=== PATIENT | female | born 1980 | race Two or more races ===

== ENCOUNTER 2017-11-20 03:55 | Emergency (ER) | payer OTHER ==
--- NOTE | 2017-11-20 04:16 | PDOC ---
History of Present Illness - General Chief Complaint: Pain Stated Complaint: ABD PAIN Time Seen by Provider: 11/20/17 04:12 - History of Present Illness Initial Comments: 11/20/17 04:27 36-year-old female complaining of left lower quadrant pain/ lleft pelvic pain radiating to left flank 2 days today at 1 AM patient started to have severe flank pain radiating to rest left groin pain. Patient reports that she vomited 2 times bilious vomitus. Denies hematuria, frequent urination, dysuria LMP 10/17/2017. patient reports that she took morning after pill 2 weeks ago. Past History - Past Medical History Allergies/Adverse Reactions: Allergies Allergy/AdvReac Type Severity Reaction Status Date / Time No Known Allergies Allergy Verified 11/20/17 04:20 Home Medications: Ambulatory Orders NK [No Known Home Medication] 11/20/17 Thyroid Disease: No - Reproductive History (#): 7 Para: 3 Therapeutic (s) & number: Yes (2) Spontaneous : 1 - Suicide/Smoking/Psychosocial Hx Smoking History: Current every day smoker Number of Cigarettes Smoked Daily: 10 If you are a former smoker, when did you quit?: 3 mths ago 'Breaking Loose' booklet given: 05/29/16 Hx Alcohol Use: No Drug/Substance Use Hx: No Substance Use Type: None Hx Substance Use Treatment: No *Physical Exam - Physical Exam Comments: 11/20/17 06:52 Last Vital Signs Temp Pulse Resp BP Pulse Ox 98.1 F 88 20 122/89 100 11/20/17 04:15 11/20/17 04:15 11/20/17 04:15 11/20/17 04:15 11/20/17 04:15 General Appearance: Yes: Appropriately Dressed Respiratory/Chest: positive: Lungs Clear, Normal Breath Sounds Cardiovascular: positive: Regular Rhythm, Regular Rate Female Pelvic Exam: positive: normal external exam, cervical os closed, adnexal tenderness (left) Gastrointestinal/Abdominal: positive: Normal Bowel Sounds, Soft Musculoskeletal: positive: Normal Inspection, CVA Tenderness (L) Extremity: positive: Normal Capillary Refill, Normal Inspection, Normal Range of Motion Integumentary: positive: Normal Color, Dry, Warm Neurologic: positive: Fully Oriented, Alert, Normal Mood/Affect ED Treatment Course - LABORATORY CBC & Chemistry Diagram: 11/20/17 04:39 11/20/17 05:14 Progress Note - Progress Note Progress Note: A: pelvic pain; flank pain P: cbc cmp beta hcg type and screen TVUS renal us *DC/Admit/Observation/Transfer Diagnosis at time of Disposition: Flank pain, Pelvic pain during - Discharge Dispostion Condition at time of disposition: Fair - Referrals - Patient Instructions - Post Discharge Activity
[2017-11-20] MEDS ORDERED: SODIUM CHLORIDE 1,000 ML IV STA (04:17)
[2017-11-20] MEDS ORDERED: ONDANSETRON 4 MG/2 ML VIAL IVPUSH ONE (04:17)
[2017-11-20 04:20] VITALS: BP 122/89; PULSE 88; TEMP 98.1; BMI 311.1
[2017-11-20] MEDS ORDERED: morphine CARPU-JECT 4 MG/1 ML DISP.SYRIN IVPUSH ONE (04:25)
--- NOTE | 2017-11-20 04:45 | PDOC ---
*Physical Exam - Vital Signs Last Vital Signs Temp Pulse Resp BP Pulse Ox 98.1 F 88 20 122/89 100 11/20/17 04:15 11/20/17 04:15 11/20/17 04:15 11/20/17 04:15 11/20/17 04:15 Medical Decision Making - Medical Decision Making 11/20/17 04:45 Pt seen by the Advanced Practice Provider under my direct supervision Ancillary studies reviewed I agree with plan as outlined by the Advanced Practice Provider DENNIS Womack *DC/Admit/Observation/Transfer - Discharge Dispostion Condition at time of disposition: Fair - Referrals - Patient Instructions - Post Discharge Activity
[2017-11-20] MEDS ORDERED: morphine SULFATE 4 MG/ML VIAL ONE (04:46)
[2017-11-20] MEDS ORDERED: ONDANSETRON 4 MG/2 ML VIAL ONE (04:47)
[2017-11-20 04:50] LABS: BASO % 0.6 % (0-2.0); EOS % 0.6 % (0-4.5); HEMATOCRIT 34.5 % (32.4-45.2); HEMOGLOBIN 11.2 GM/dL (10.7-15.3); LYMPH % 21.1 % (8-40); MCHC 32.6 g/dl (32.0-36.0); MEAN CELL VOLUME 79.8 fl (80-96); MEAN PLT VOLUME 8.4 fl (7.5-11.1); NEUT % 69.7 % (42.8-82.8); PLATELET COUNT 299 K/MM3 (134-434); RBC 4.32 M/mm3 (3.60-5.2); RDW 14.4 % (11.6-15.6)
[2017-11-20 04:56] LABS: URINE APPEARANCE SLCLOUDY; URINE BILIRUBIN NEGATIVE (<2.0 mg/dL); URINE BLOOD NEGATIVE (NEGATIVE); URINE COLOR LTYELLOW; URINE GLUCOSE (UA) NEGATIVE (NEGATIVE); URINE KETONE NEGATIVE (NEGATIVE); URINE LEUK ESTERASE NEGATIVE (NEGATIVE); URINE NITRITE POSITIVE (NEGATIVE); URINE PROTEIN NEGATIVE (NEGATIVE)
[2017-11-20 05:12] LABS: EPI CELLS FEW /HPF (FEW); URINE BACTERIA MODERATE /hpf (NONE SEEN); URINE MUCUS RARE
[2017-11-20 05:43] LABS: ALBUMIN 3.4 g/dl (3.4-5.0); ALK PHOS 68 U/L (45-117); ANION GAP 6 (8-16); BILIRUBIN,TOTAL 0.3 mg/dL (0.2-1.0); BLOOD UREA NITROGEN 17 mg/dL (7-18); CALCIUM 8.5 mg/dL (8.5-10.1); CHLORIDE 106 mmol/L (98-107); CO2 27 mmol/L (21-32); CREATININE 0.7 mg/dL (0.55-1.02); GLUCOSE,RANDOM 83 mg/dL (74-106); POTASSIUM 3.9 mmol/L (3.5-5.1); SGOT/AST 19 U/L (15-37); SGPT/ALT 24 U/L (12-78); SODIUM 139 mmol/L (136-145); TOT PROT 6.6 g/dl (6.4-8.2)
[2017-11-20 06:15] LABS: INR 1.01 (0.82-1.09); PROTHROMBIN TIME (PATIENT) 11.4 SEC (9.7-13.0)
[2017-11-20 06:17] LABS: ACTIVATED PTT 29.7 SECONDS (26.9-34.4)
[2017-11-20] MEDS ORDERED: ACETAMINOPHEN 325 MG TABLET (FP) ONE (07:45)
[2017-11-20] MEDS ORDERED: ACETAMINOPHEN 325 MG TABLET (FP) PO ONE (07:45)
--- NOTE | 2017-11-20 08:15 | PDOC ---
*Physical Exam - Vital Signs Last Vital Signs Temp Pulse Resp BP Pulse Ox 98.1 F 88 20 122/89 100 11/20/17 04:15 11/20/17 04:15 11/20/17 04:15 11/20/17 04:15 11/20/17 04:15 - Physical Exam General Appearance: Yes: Appropriately Dressed. No: Apparent Distress HEENT: positive: Normal Voice Respiratory/Chest: negative: Respiratory Distress Gastrointestinal/Abdominal: positive: Normal Bowel Sounds, Tender (to R pelvis) , Soft. negative: Distended, Guarding, Rebound Musculoskeletal: negative: CVA Tenderness Integumentary: positive: Dry, Warm Neurologic: positive: Fully Oriented, Alert, Normal Mood/Affect ED Treatment Course - LABORATORY CBC & Chemistry Diagram: 11/20/17 04:39 11/20/17 05:14 - ADDITIONAL ORDERS Additional order review: Laboratory Results 11/20/17 11/20/17 11/20/17 05:50 05:50 05:50 PT with INR 11.40 INR 1.01 PTT (Actin FS) 29.7 Sodium Potassium Chloride Carbon Dioxide Anion Gap BUN Creatinine Creat Clearance w eGFR Random Glucose Calcium Total Bilirubin AST ALT Alkaline Phosphatase Total Protein Albumin Beta HCG, Quant 1282.8 Serum , Qual Urine Color Urine Appearance Urine pH Ur Specific [place] Urine Protein Urine Glucose (UA) Urine Ketones Urine Blood Urine Nitrite Urine Bilirubin Urine Urobilinogen Ur Leukocyte Esterase Urine WBC (Auto) Urine RBC (Auto) Ur Epithelial Cells Urine Bacteria Urine Mucus Blood Type O POSITIVE Antibody Screen Negative 11/20/17 11/20/17 11/20/17 05:14 05:14 04:39 PT with INR INR PTT (Actin FS) Sodium 139 Cancelled Potassium 3.9 Cancelled Chloride 106 Cancelled Carbon Dioxide 27 Cancelled Anion Gap 6 L Cancelled BUN 17 Cancelled Creatinine 0.7 Cancelled Creat Clearance w eGFR > 60 Cancelled Random Glucose 83 Cancelled Calcium 8.5 Cancelled Total Bilirubin 0.3 D Cancelled AST 19 Cancelled ALT 24 Cancelled Alkaline Phosphatase 68 Cancelled Total Protein 6.6 Cancelled Albumin 3.4 Cancelled Beta HCG, Quant Serum , Qual Positive Urine Color Urine Appearance Urine pH Ur Specific [place] Urine Protein Urine Glucose (UA) Urine Ketones Urine Blood Urine Nitrite Urine Bilirubin Urine Urobilinogen Ur Leukocyte Esterase Urine WBC (Auto) Urine RBC (Auto) Ur Epithelial Cells Urine Bacteria Urine Mucus Blood Type Antibody Screen 11/20/17 11/20/17 04:39 04:39 PT with INR INR PTT (Actin FS) Sodium Potassium Chloride Carbon Dioxide Anion Gap BUN Creatinine Creat Clearance w eGFR Random Glucose Calcium Total Bilirubin AST ALT Alkaline Phosphatase Total Protein Albumin Beta HCG, Quant Serum , Qual Cancelled Urine Color Ltyellow Urine Appearance Slcloudy Urine pH 7.0 Ur Specific [place] 1.024 Urine Protein Negative Urine Glucose (UA) Negative Urine Ketones Negative Urine Blood Negative Urine Nitrite Positive Urine Bilirubin Negative Urine Urobilinogen 2.0 H Ur Leukocyte Esterase Negative Urine WBC (Auto) 4 Urine RBC (Auto) 2 Ur Epithelial Cells Few Urine Bacteria Moderate Urine Mucus Rare Blood Type Antibody Screen 11/20/17 04:39 RBC 4.32 MCV 79.8 L MCHC 32.6 RDW 14.4 MPV 8.4 Neutrophils % 69.7 Lymphocytes % 21.1 D Monocytes % 8.0 Eosinophils % 0.6 Basophils % 0.6 - Medications Given in the ED: ED Medications Discontinued Medications Generic Name Dose Route Start Last Admin Trade Name Rayq PRN Reason Stop Dose Admin Sodium Chloride 1,000 mls @ 1,000 mls/hr 11/20/17 04:17 11/20/17 04:35 Normal Saline - IV 11/20/17 05:16 1,000 mls/hr ASDIR STA Administration Morphine Sulfate 4 mg 11/20/17 04:25 11/20/17 04:35 Morphine Injection - IVPUSH 11/20/17 04:26 4 mg ONCE ONE Administration Ondansetron HCl 4 mg 11/20/17 04:17 11/20/17 04:35 Zofran Injection IVPUSH 11/20/17 04:18 4 mg ONCE ONE Administration Medical Decision Making - Medical Decision Making 11/20/17 07:47 Pt signed out to me at 7 AM 36-year-old F w/ multiple pregnancies w/ 3 live births, multiple spontaneous miscarriages and elective ABs (does not quite remember how may pregnancies she has had) here with right pelvic pain. Found to have + test, which patient was not aware off. ~5 weeks weeks by dates. No vaginal bleeding or dysuria, but has + nitrites on UA. Beta 1200. Ultrasound pending 11/20/17 11:06 Ultrasound with possible early , no pole or yolk sac seen. Patient will need follow-up in 48 hours to rule out ectopic. Patient aware and will return on Thursday for re-eval. No abdominal pain or bleeding at this time. Dc with Macrobid for uti *DC/Admit/Observation/Transfer Diagnosis at time of Disposition: Flank pain, Pelvic pain during - Discharge Dispostion Disposition: HOME Condition at time of disposition: Improved - Prescriptions Prescriptions: Nitrofurantoin Monohyd/M-Cryst [Macrobid -] 100 mg PO BID #14 capsule - Referrals - Patient Instructions Printed Discharge Instructions: DI for Abdominal Pain -- Early Additional Instructions: Your ultrasound showed that you may have an early , but it is important that you follow-up in 48 hours for repeat assessment with either a repeat hormone level and/or repeat ultrasound to amke sure that you do not have an ectopic . If you are not able to see your OB over the weekend, return to ER. Continue to take Tylenol as needed for pain. You were started on antibiotics for UTI, take medication as directed - Post Discharge Activity
== END 2017-11-20 11:11 | disposition home or self-care (01) ==
LOC: JER 03:55
PROC: 3E033NZ Introduction of Analgesics, Hypnotics, Sedatives into Peripheral Vein, Percutaneous Approach (ICD-10-PCS; principal; 2017-11-20)
PROC: 3E033GC Introduction of Other Therapeutic Substance into Peripheral Vein, Percutaneous Approach (ICD-10-PCS; 2017-11-20)
PROC: 3E0337Z Introduction of Electrolytic and Water Balance Substance into Peripheral Vein, Percutaneous Approach (ICD-10-PCS; 2017-11-20)
DX: O26.891 Other specified pregnancy related conditions, first trimester (principal); Z3A.00 Weeks of gestation of pregnancy not specified; R10.32 Left lower quadrant pain
CPT/HCPCS: 36415; 76775-TC; 76817-TC; 80053; 81003; 81015; 84702; 84703; 85025; 85610; 85730; 86850; 86900; 86901; 87086; 96361; 96374; 96375; 99284-25; J7030

== ENCOUNTER 2017-11-22 10:35 | Emergency (ER) | payer OTHER ==
[2017-11-22 10:45] VITALS: TEMP 98.5; BMI 31.1
[2017-11-22 11:23] LABS: URINE APPEARANCE CLEAR; URINE BILIRUBIN NEGATIVE (<2.0 mg/dL); URINE BLOOD NEGATIVE (NEGATIVE); URINE COLOR STRAW; URINE GLUCOSE (UA) NEGATIVE (NEGATIVE); URINE KETONE NEGATIVE (NEGATIVE); URINE NITRITE NEGATIVE (NEGATIVE); URINE PROTEIN NEGATIVE (NEGATIVE); URINE UROBILINOGEN NEGATIVE mg/dL (0.2-1.0)
[2017-11-22] MEDS ORDERED: SODIUM CHLORIDE 1,000 ML IV STA (11:23)
[2017-11-22 11:25] LABS: URINE LEUK ESTERASE 1+ (NEGATIVE)
--- NOTE | 2017-11-22 11:25 | PDOC ---
History of Present Illness - General History Source: Patient Exam Limitations: No Limitations - History of Present Illness Initial Comments: 11/22/17 11:25 36f [id number] LMP 10/17/17 presents to the ed for post 48h follow up on ultrasound and betahcg in the context of left flank pain. She was found 2 days ago to have positive nitrites so was discharged on antibiotics but is still complaining of unchanged flank pain. Patient reports that she didn't have time to pick her her antibiotics after discharge. <Sammy Israel - Last Filed: 11/22/17 13:56> <Sal Whitley - Last Filed: 11/22/17 13:59> - General Chief Complaint: Pain, Acute Stated Complaint: REVISIT, PAIN () Time Seen by Provider: 11/22/17 10:53 Past History - Past Medical History COPD: No Thyroid Disease: No Other medical history: DENIES. - Reproductive History (#): 7 Para: 3 Therapeutic (s) & number: Yes (2) Spontaneous : 1 - Suicide/Smoking/Psychosocial Hx Smoking History: Current every day smoker Have you smoked in the past 12 months: Yes Number of Cigarettes Smoked Daily: 8 If you are a former smoker, when did you quit?: 3 mths ago Information on smoking cessation initiated: No 'Breaking Loose' booklet given: 05/29/16 Hx Alcohol Use: No Drug/Substance Use Hx: No Substance Use Type: None Hx Substance Use Treatment: No <Sammy Israel - Last Filed: 11/22/17 13:56> <Sal Whitley - Last Filed: 11/22/17 13:59> - Past Medical History Allergies/Adverse Reactions: Allergies Allergy/AdvReac Type Severity Reaction Status Date / Time No Known Allergies Allergy Verified 11/22/17 10:39 Home Medications: Ambulatory Orders Ciprofloxacin HCl/Dexameth [Ciprodex Otic Suspension] 4 drop TP BID #1 bottle Nitrofurantoin Monohyd/M-Cryst [Macrobid -] 100 mg PO BID #14 capsule 11/20/17 Review of Systems - Review of Systems Able to Perform ROS?: Yes Is the patient limited Turkmen proficient: No Constitutional: No: Symptoms Reported HEENTM: No: Symptoms Reported Respiratory: No: Symptoms reported Cardiac (ROS): No: Symptoms Reported ABD/GI: Yes: See HPI : No: Symptoms Reported Musculoskeletal: No: Symptoms Reported Integumentary: No: Symptoms Reported <Sammy Israel - Last Filed: 11/22/17 13:56> *Physical Exam - Vital Signs Last Vital Signs Temp Pulse Resp BP Pulse Ox 98.5 F 76 19 115/67 100 11/22/17 10:39 11/22/17 10:39 11/22/17 10:39 11/22/17 10:39 11/22/17 10:39 - Physical Exam General Appearance: Yes: Nourished, Appropriately Dressed. No: Apparent Distress HEENT: positive: EOMI, SAMMY, Normal ENT Inspection Respiratory/Chest: positive: Lungs Clear, Normal Breath Sounds. negative: Chest Tender, Respiratory Distress Cardiovascular: positive: Regular Rhythm, Regular Rate, S1, S2 Gastrointestinal/Abdominal: positive: Normal Bowel Sounds, Flat, Soft. negative : Tender Musculoskeletal: positive: CVA Tenderness (L) <Sammy Israel - Last Filed: 11/22/17 13:56> - Vital Signs Last Vital Signs Temp Pulse Resp BP Pulse Ox 98.5 F 76 19 115/67 100 11/22/17 10:39 11/22/17 10:39 11/22/17 10:39 11/22/17 10:39 11/22/17 10:39 <Sal Whitley - Last Filed: 11/22/17 13:59> ED Treatment Course - RADIOLOGY Radiology Studies Ordered: Category Date Time Status FOLLOW-UP US [US] Stat Ultrasound 11/22/17 10:55 Ordered <Sammy Israel - Last Filed: 11/22/17 13:56> - ADDITIONAL ORDERS Additional order review: Laboratory Results 11/22/17 11/22/17 10:55 10:55 Beta HCG, Quant 3973.0 Urine Color Straw Urine Appearance Clear Urine pH 7.0 Ur Specific [place] 1.015 Urine Protein Negative Urine Glucose (UA) Negative Urine Ketones Negative Urine Blood Negative Urine Nitrite Negative Urine Bilirubin Negative Urine Urobilinogen Negative Ur Leukocyte Esterase 1+ H Urine WBC (Auto) 1 Urine RBC (Auto) 1 Ur Epithelial Cells Few Urine Mucus Rare - Medications Given in the ED: ED Medications Discontinued Medications Generic Name Dose Route Start Last Admin Trade Name Freq PRN Reason Stop Dose Admin Sodium Chloride 1,000 mls @ 1,000 mls/hr 11/22/17 11:23 11/22/17 11:40 Normal Saline - IV 11/22/17 12:22 1,000 mls/hr ASDIR STA Administration <AngiSal - Last Filed: 11/22/17 13:59> Medical Decision Making - Medical Decision Making 11/22/17 13:21 beta hcg increased as expected. ultrasound confirms intrauterine . Will d/c with referal to OBGYN. Patient requested Dr. Schreiber <Sammy Israel - Last Filed: 11/22/17 13:56> *DC/Admit/Observation/Transfer - Discharge Dispostion Decision to Admit order: No <Sammy Israel - Last Filed: 11/22/17 13:56> <Sal Whitley - Last Filed: 11/22/17 13:59> Diagnosis at time of Disposition: , UTI (urinary tract infection) - Discharge Dispostion Disposition: HOME Condition at time of disposition: Improved - Referrals Referrals: Denton Schreiber MD [Staff Physician] - - Patient Instructions Printed Discharge Instructions: Medications and Additional Instructions: Follow up with Dr. Schreiber within 3-4 days. You will need a repeat ultrasound and blood testing, as we cannot confirm a normal at this time. We still cannot rule out ectopic , a potentially life threatening condition. If you experience worsening pain, vomiting, bleeding, fevers, or any other concerning symptoms, return to the ER immediately.
[2017-11-22 11:26] LABS: EPI CELLS FEW /HPF (FEW); URINE MUCUS RARE
[2017-11-22] MEDS ORDERED: NITROFURANTOIN MACROCRYSTAL 50 MG CAPSULE (FP) ONE (11:43)
[2017-11-22] MEDS ORDERED: NITROFURANTOIN MACROCRYSTAL 50 MG CAPSULE (FP) PO SCH (11:45)
--- NOTE | 2017-11-22 13:18 | PDOC ---
Attending Attestation - Resident Resident Name: JhonatanSammy - ED Attending Attestation I have performed the following: I have examined & evaluated the patient, The case was reviewed & discussed with the resident, I agree w/resident's findings & plan, Exceptions are as noted - HPI HPI: 11/22/17 13:14 " The patient is a 36 year old female, [id number], @ 4 weeks by LMP, with no significant PMH who presents to the emergency department for repeat HCG and US. The patient reports that she was here in the ED 2 days ago for a similar complaint. Pt had US that could not confirm IUP and pt was told to have repeat US in 2 days. Pt was unable to get OB f/u so came to ED for repeat US. Pt also was diagnosed with UTI and prescribed macrobid, which she has not picked up. Denies vaginal discharge/bleeding. Pt denies F/C. She denies chest pain, shortness of breath, headache and dizziness. She denies nausea, vomit, diarrhea, constipation or urinary symptoms. The patient denies any other complaints. - Physicial Exam PE: 11/22/17 13:16 "GENERAL: Awake, alert, and fully oriented, in no acute distress. HEAD: No signs of trauma EYES: PERRLA, EOMI, sclera anicteric, conjunctiva clear ENT: Auricles normal inspection, hearing grossly normal, nares patent, oropharynx clear without exudates. Moist mucosa NECK: Nontender, no stepoffs, Normal ROM, supple, no lymphadenopathy, JVD, or masses LUNGS: Breath sounds equal, clear to auscultation bilaterally. No wheezes, and no crackles HEART: Regular rate and rhythm, normal S1 and S2, no murmurs, rubs or gallops ABDOMEN: + suprapubic and LLQ tenderness. No guarding, no rebound. No masses EXTREMITIES: Normal range of motion, no edema. No clubbing or cyanosis. No cords, erythema, or tenderness NEUROLOGICAL: Cranial nerves II through XII intact. 5/5 strength and sensation in all extremities, Normal speech, normal gait, normal cerebellar function SKIN: Warm, Dry, normal turgor, no rashes or lesions noted. " - Medical Decision Making 11/22/17 13:17 36 F with L flank pain. Had US 2 days ago that could not confirm IUP. Here for repeat HCG and US. - HCG quant - TVUS - UA HCG increased TVUS still with no definite IUP Pt instructed to f/u with integrity director for repeat US and HCG. Pt is well appearing, with normal vitals. Clinically stable for DC at this time. I discussed the physical exam findings, ancillary test results and final diagnoses with the patient. I answered all of the patient's questions. The patient was satisfied with the care received and felt comfortable with the discharge plan and treatment plan. The patient agrees to follow up with the primary care physician within 24-72 hours.
[2017-11-22 14:00] VITALS: BP 135/74; PULSE 78
== END 2017-11-22 13:59 | disposition home or self-care (01) ==
LOC: JER 10:35
PROC: 3E0337Z Introduction of Electrolytic and Water Balance Substance into Peripheral Vein, Percutaneous Approach (ICD-10-PCS; principal; 2017-11-22)
DX: O23.41 Unspecified infection of urinary tract in pregnancy, first trimester (principal); Z3A.01 Less than 8 weeks gestation of pregnancy; F17.200 Nicotine dependence, unspecified, uncomplicated
CPT/HCPCS: 36415; 76817-TC; 81003; 81015; 84702; 96360; 99281-25; J7030

== ENCOUNTER 2017-11-30 17:39 | Emergency (ER) | payer OTHER ==
--- NOTE | 2017-11-30 18:00 | PDOC ---
Rapid Medical Evaluation Time Seen by Provider: 11/30/17 18:00 Medical Evaluation: Allergies Allergy/AdvReac Type Severity Reaction Status Date / Time No Known Allergies Allergy Verified 11/30/17 17:59 11/30/17 18:03 37 year old female seen here on 11/20 and again on 11/22 with abdominal/left flank pain and UA consistent with UTI. LMP 10/17, beta hcg 1282 then 3973. Intrauterine gestational sac seen on sono without yolk sac or pole. Renal u/s 11/20 no hydro or stone seen. Returns today with worsening flank pain. Alert, anxious/tearful. Abd diffusely tender, left CVA tenderness. Plan: -Repeat Tv u/s -Labs including CBC, BMP, beta hcg, UA/culture -Tylenol 650mg po for pain -To Main ED for further evaluation
[2017-11-30 18:02] VITALS: BMI 31.1
[2017-11-30] MEDS ORDERED: ACETAMINOPHEN 325 MG TABLET (FP) PO ONE (18:02)
--- NOTE | 2017-11-30 18:32 | PDOC ---
History of Present Illness - General Chief Complaint: Pain, Acute Stated Complaint: ABD PAIN Time Seen by Provider: 11/30/17 18:00 - History of Present Illness Initial Comments: 11/30/17 18:31 Ms. Chavarria is a 37 yo [id number] female w/ no significant pmh who presents for evaluation of flank pain. Patient was previously evaluated 11/20 and 11/22 for left flank pain and UA consistent with UTI. LMP was 5/5. Patient reports her pain has continued and that her right side is tender now as well. The patient denies chest pain, shortness of breath, headache and dizziness. Denies fever, chills, nausea, vomit, diarrhea and constipation. Denies dysuria, frequency, urgency and hematuria. Allergies: NKDA Past History - Past Medical History Allergies/Adverse Reactions: Allergies Allergy/AdvReac Type Severity Reaction Status Date / Time No Known Allergies Allergy Verified 11/30/17 17:59 Home Medications: Ambulatory Orders Ciprofloxacin HCl/Dexameth [Ciprodex Otic Suspension] 4 drop TP BID #1 bottle Nitrofurantoin Monohyd/M-Cryst [Macrobid -] 100 mg PO BID #14 capsule 11/20/17 Amoxicillin - [Amoxicillin 500mg Capsule -] 500 mg PO BID #28 capsule 11/30/17 COPD: No Thyroid Disease: No Other medical history: DENIES. - Reproductive History (#): 7 Para: 3 Therapeutic (s) & number: Yes (2) Spontaneous : 1 - Suicide/Smoking/Psychosocial Hx Smoking History: Former smoker Have you smoked in the past 12 months: Yes Number of Cigarettes Smoked Daily: 8 If you are a former smoker, when did you quit?: 3 mths ago Information on smoking cessation initiated: No 'Breaking Loose' booklet given: 05/29/16 Hx Alcohol Use: No Drug/Substance Use Hx: No Substance Use Type: None Hx Substance Use Treatment: No Review of Systems - Review of Systems Comments:: 11/30/17 18:32 GENERAL/CONSTITUTIONAL: No fever or chills. No weakness. HEAD, EYES, EARS, NOSE AND THROAT: No change in vision. No ear pain or discharge. No sore throat. CARDIOVASCULAR: No chest pain or shortness of breath RESPIRATORY: No cough, wheezing, or hemoptysis. GASTROINTESTINAL: +Continuing lower abdominal pain. N/V she associates with her . GENITOURINARY: No dysuria, frequency, or change in urination. MUSCULOSKELETAL: No joint or muscle swelling or pain. No neck or back pain. SKIN: No rash NEUROLOGIC: No headache, vertigo, loss of consciousness, or change in strength/ sensation. ENDOCRINE: No increased thirst. No abnormal weight change HEMATOLOGIC/LYMPHATIC: No anemia, easy bleeding, or history of blood clots. ALLERGIC/IMMUNOLOGIC: No hives or skin allergy. *Physical Exam - Vital Signs Last Vital Signs Temp Pulse Resp BP Pulse Ox 98 F 94 H 19 116/66 100 11/30/17 18:00 11/30/17 18:00 11/30/17 18:00 11/30/17 18:00 11/30/17 18:00 - Physical Exam Comments: 11/30/17 18:32 GENERAL: Awake, alert, and fully oriented, in no acute distress HEAD: No signs of trauma, normocephalic, atraumatic EYES: PERRLA, EOMI, sclera anicteric, conjunctiva clear ENT: Auricles normal inspection, hearing grossly normal, nares patent, oropharynx clear without exudates. Moist mucosa NECK: Normal ROM, supple, no lymphadenopathy, JVD, or masses LUNGS: No distress, speaks full sentences, clear to auscultation bilaterally HEART: Regular rate and rhythm, normal S1 and S2, no murmurs, rubs or gallops, peripheral pulses normal and equal bilaterally. ABDOMEN: +Left sided abdominal TTP. Otherwise soft, nontender, normoactive bowel sounds. No guarding, no rebound. No masses EXTREMITIES: Normal inspection, Normal range of motion, no edema. No clubbing or cyanosis. NEUROLOGICAL: Cranial nerves II through XII grossly intact. Normal speech, normal gait, no focal sensorimotor deficits SKIN: Warm, Dry, normal turgor, no rashes or lesions noted. ED Treatment Course - LABORATORY CBC & Chemistry Diagram: 11/30/17 19:28 11/30/17 19:28 - Medications Given in the ED: ED Medications Discontinued Medications Generic Name Dose Route Start Last Admin Trade Name Freq PRN Reason Stop Dose Admin Acetaminophen 650 mg 11/30/17 18:02 11/30/17 18:06 Tylenol - PO 11/30/17 18:03 650 mg ONCE ONE Administration Medical Decision Making - Medical Decision Making 11/30/17 22:33 Ms. Chavarria is a 37 yo female w/ pmh as described who presents for evaluation of abdominal pain as well as confirmation of IUP. Abdominal and transvaginal US ordered to confirm and r/o acute abdominal process. Transvaginal significant for 6w1d IUP. Abdominal US negative for acute process. Patient UTI noted and treated with rocephin as well as amoxicillin Rx. Discharging to home w / instructions to f/u with [facility]. [facility] information also provided upon patient request. *DC/Admit/Observation/Transfer Diagnosis at time of Disposition: Pelvic pain during UTI (urinary tract infection) Qualifiers: Urinary tract infection type: site unspecified Hematuria presence: without hematuria Qualified Code(s): N39.0 - Urinary tract infection, site not specified - Discharge Dispostion Disposition: HOME - Prescriptions Prescriptions: Amoxicillin - [Amoxicillin 500mg Capsule -] 500 mg PO BID #28 capsule - Referrals Referrals: Nick Kenney MD [Staff Physician] - - Patient Instructions Printed Discharge Instructions: DI for Urinary Tract Infection (UTI) Additional Instructions: Please follow-up with [facility] as discussed. Return to ER if any continued pain, fever, chills, or other concerning symptoms. - Post Discharge Activity
[2017-11-30] MEDS ORDERED: ONDANSETRON 4 MG/2 ML VIAL IVPUSH ONE (18:50)
[2017-11-30] MEDS ORDERED: SODIUM CHLORIDE 1,000 ML IV STA (18:50)
[2017-11-30 19:50] LABS: BASO % 0.6 % (0-2.0); EOS % 0.3 % (0-4.5); HEMATOCRIT 35.6 % (32.4-45.2); HEMOGLOBIN 11.6 GM/dL (10.7-15.3); LYMPH % 15.2 % (8-40); MCH 25.8 pg (25.7-33.7); MCHC 32.6 g/dl (32.0-36.0); MEAN CELL VOLUME 79.1 fl (80-96); MEAN PLT VOLUME 8.9 fl (7.5-11.1); MONO % 8.9 % (3.8-10.2); PLATELET COUNT 283 K/MM3 (134-434); RBC 4.51 M/mm3 (3.60-5.2); RDW 14.5 % (11.6-15.6); WHITE BLOOD COUNT 9.3 K/mm3 (4.0-10.0)
[2017-11-30 19:51] LABS: URINE APPEARANCE SLCLOUDY; URINE BILIRUBIN NEGATIVE (<2.0 mg/dL); URINE COLOR YELLOW; URINE GLUCOSE (UA) NEGATIVE (NEGATIVE); URINE KETONE 1+ (NEGATIVE); URINE LEUK ESTERASE TRACE (NEGATIVE); URINE NITRITE POSITIVE (NEGATIVE); URINE UROBILINOGEN 4.0 E.U/dl mg/dL (0.2-1.0)
[2017-11-30] MEDS ORDERED: ONDANSETRON 4 MG/2 ML VIAL ONE (19:52)
[2017-11-30 19:53] LABS: URINE PROTEIN 1+ (NEGATIVE)
--- NOTE | 2017-11-30 20:06 | PDOC ---
Attending Attestation - HPI HPI: 11/30/17 20:42 The patient is a 37 year old female [id number], with a significant past medical history of, who presents to the emergency department with, left sided abdominal pain and left sided flank pain radiating to the right flank. The patient came into the ED for similar episodes on 11/20 and 11/22, however, it has since worsened. As per patient the patient, her pain initially onset as localized to the left side and has since progressed to the right also. She was advised to follow up with her HEARING CONSULTANT on both occasions but, has not been able to get in contact with her HEARING CONSULTANT. She denies recent fevers, chills, headache or dizziness. She denies recent nausea, vomit, diarrhea or constipation. She denies recent dysuria, frequency, urgency or hematuria. She denies recent chest pain or shortness of breath. Allergies: NKA Past surgical history: None reported. Social history: Nonsmoker. Denies EtOH use and recreational drug use. <Puma Hutton - Last Filed: 11/30/17 20:42> - Resident Resident Name: Samm Jalloh - ED Attending Attestation I have performed the following: I have examined & evaluated the patient, The case was reviewed & discussed with the resident, I agree w/resident's findings & plan, Exceptions are as noted - Physicial Exam PE: 11/30/17 20:43 *Physical Exam General Appearance: Yes: Appropriately Dressed. No: Apparent Distress, Intoxicated HEENT: positive: EOMI, SAMMY, Normal ENT Inspection, Normal Voice, TMs Normal, Pharynx Normal. negative: Pale Conjunctivae, Photophobia, Scleral Icterus (R), Scleral Icterus (L) Neck: positive: Trachea midline, Normal Thyroid, Supple. negative: Tender, Rigid, Carotid bruit, Stridor, Lymphadenopathy (R), Lymphadenopathy (L), Thyromegaly Respiratory/Chest: positive: Lungs Clear, Normal Breath Sounds. negative: Chest Tender, Respiratory Distress, Accessory Muscle Use, Labored Respiration, RES, Crackles, Rales, Rhonchi, Stridor, Wheezing, Dullness Cardiovascular: positive: Regular Rhythm, Regular Rate, S1, S2. negative: Edema , JVD, Murmur, Bradycardia, Tachycardia Vascular Pulses: Dorsalis-Pedis (R): 2+, Doralis-Pedis (L): 2+ Gastrointestinal/Abdominal: positive: Normal Bowel Sounds, Flat, Soft. negative : Tender, Organomegaly, Pulsatile Mass, Increased Bowel Sounds, Decreased BS, Distended, Guarding, Rebound, Hernia, Hepatomegaly, Spleenomegaly Lymphatic: negative: Adenopathy, Tenderness Musculoskeletal: positive: Normal Inspection. negative: CVA Tenderness, Decreased Range of Motion Extremity: positive: Normal Capillary Refill, Normal Inspection, Normal Range of Motion, Pelvis Stable. negative: Tender, Pedal Edema, Swelling, Erythema Integumentary: positive: Normal Color, Dry, Warm. 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 negative: EOM Palsy, Facial Droop, Sensory Deficit - Medical Decision Making 11/30/17 22:28 Pt treated and released. <Trey Pardo - Last Filed: 11/30/17 22:29> Attestations - Attestations 11/30/17 20:42 Documentation prepared by Puma Hutton, acting as durable medical equipment repairer for Trey Pardo DO. <Puma Hutton - Last Filed: 11/30/17 20:42>
[2017-11-30] MEDS ORDERED: CEFTRIAXONE 1,000 MG in DEXTROSE 5%-WATER - 50 ML IVPB ONE (20:07)
[2017-11-30 20:20] LABS: EPI CELLS RARE /HPF (FEW); URINE BACTERIA RARE /hpf (NONE SEEN); URINE MUCUS MODERATE
[2017-11-30 20:20] LABS: ANION GAP 7 (8-16); BLOOD UREA NITROGEN 11 mg/dL (7-18); CALCIUM 8.8 mg/dL (8.5-10.1); CHLORIDE 103 mmol/L (98-107); CO2 27 mmol/L (21-32); CREATININE 0.7 mg/dL (0.55-1.02); GLUCOSE,RANDOM 96 mg/dL (74-106); POTASSIUM 4.2 mmol/L (3.5-5.1); SODIUM 137 mmol/L (136-145)
[2017-11-30] MEDS ORDERED: CEFTRIAXONE 1 GM/50 ML BAG ONE (22:13)
[2017-11-30 22:26] VITALS: BP 120/60; PULSE 74; TEMP 98.9
[2017-11-30] MEDS ORDERED: AMOXICILLIN 500 MG CAPSULE (FP) PO ONE (22:31)
[2017-11-30] MEDS ORDERED: AMOXICILLIN 500 MG CAPSULE (FP) ONE (23:44)
[2017-12-01] MEDS ORDERED: AMOXICILLIN 500 MG CAPSULE (FP) ONE
== END 2017-12-01 00:04 | disposition home or self-care (01) ==
LOC: JER 17:39
PROC: 3E0337Z Introduction of Electrolytic and Water Balance Substance into Peripheral Vein, Percutaneous Approach (ICD-10-PCS; principal; 2017-11-30)
PROC: 3E03329 Introduction of Other Anti-infective into Peripheral Vein, Percutaneous Approach (ICD-10-PCS; 2017-11-30)
PROC: 3E033GC Introduction of Other Therapeutic Substance into Peripheral Vein, Percutaneous Approach (ICD-10-PCS; 2017-11-30)
DX: O26.891 Other specified pregnancy related conditions, first trimester (principal); O23.31 Infections of other parts of urinary tract in pregnancy, first trimester; Z3A.01 Less than 8 weeks gestation of pregnancy
CPT/HCPCS: 36415; 76700-TC; 76801-TC; 80048; 81003; 81015; 84702; 85025; 87086; 96361; 96365; 96375; 99283-25; J7030

== ENCOUNTER 2018-01-18 05:48 | Emergency (ER) | payer OTHER ==
[2018-01-18 06:40] VITALS: BMI 29.2
--- NOTE | 2018-01-18 07:01 | PDOC ---
History of Present Illness - General Chief Complaint: Pain, Acute Stated Complaint: ABD PAIN 3 MONTHS Time Seen by Provider: 01/18/18 07:01 - History of Present Illness Initial Comments: The patient is a 37F who is approximately 11weeks who presents with 6 hours of cramping LUQ abdominal pain that radiates towards her back associated with NBNB emesis and non-bloody diarrhea. She denies having symptoms like this before and denies sick contacts. Denies fevers/chills, vaginal bleeding/ discharge or lower abdominal pain. She endorses a recent history of UTI wihtin the last 3 weeks but reports that symptoms feel different to her and denies dysuria. She denies history of kidney stones but endorses a family history. She reports eating 'pizza with broccoli' at 2300 last night before the symptoms started; however, her boyfriend ate the same foods and denies symptoms. She has been taking her vitamins and follows up with [address] [place] [address] for OB. 01/18/18 07:37 Past History - Past Medical History Allergies/Adverse Reactions: Allergies Allergy/AdvReac Type Severity Reaction Status Date / Time No Known Allergies Allergy Verified 11/30/17 17:59 Home Medications: Ambulatory Orders Metoclopramide HCl [Reglan -] 10 mg PO DAILY PRN #7 tablet 01/18/18 COPD: No Thyroid Disease: No - Reproductive History (#): 7 Para: 3 Therapeutic (s) & number: Yes (2) Spontaneous : 1 - Suicide/Smoking/Psychosocial Hx Smoking History: Current some day smoker Have you smoked in the past 12 months: Yes Number of Cigarettes Smoked Daily: 4 If you are a former smoker, when did you quit?: 3 mths ago Information on smoking cessation initiated: No 'Breaking Loose' booklet given: 05/29/16 Hx Alcohol Use: No Drug/Substance Use Hx: No Substance Use Type: None Hx Substance Use Treatment: No Review of Systems - Review of Systems Able to Perform ROS?: Yes Comments:: GENERAL/CONSTITUTIONAL: No fever or chills. No weakness HEAD, EYES, EARS, NOSE AND THROAT: No change in vision. No ear pain or discharge. No sore throat CARDIOVASCULAR: +pleuritic chest pain with deep inspiration; No palpitations or shortness of breath RESPIRATORY: No cough, wheezing, or hemoptysis GASTROINTESTINAL: per HPI GENITOURINARY: No dysuria, frequency, or change in urination MUSCULOSKELETAL: No joint or muscle swelling or pain. No neck or back pain SKIN: No rash NEUROLOGIC: No headache, vertigo, loss of consciousness, or change in strength/ sensation ENDOCRINE: No increased thirst. No abnormal weight change HEMATOLOGIC/LYMPHATIC: No easy bleeding, or history of blood clots ALLERGIC/IMMUNOLOGIC: No hives or skin allergy 01/18/18 07:37 Is the patient limited Hebrew proficient: No *Physical Exam - Vital Signs Last Vital Signs Temp Pulse Resp BP Pulse Ox 97.8 F 70 16 108/65 97 01/18/18 06:08 01/18/18 06:08 01/18/18 06:08 01/18/18 06:08 01/18/18 06:08 - Physical Exam Comments: GENERAL: Awake, alert, and fully oriented, in no acute distress HEAD: No signs of trauma, normocephalic, atraumatic EYES: PERRL, EOMI, sclera anicteric, conjunctiva clear ENT: Hearing grossly normal, nares patent, oropharynx clear without exudates. Moist mucosa NECK: Normal ROM, supple, no lymphadenopathy LUNGS: No distress, speaks full sentences, clear to auscultation bilaterally HEART: Regular rate and rhythm, normal S1 and S2, no murmurs appreciated, peripheral pulses normal and equal bilaterally ABDOMEN: Soft, non-distended, mild LUQ TTP, normoactive bowel sounds. No guarding, no rebound. No CVA tenderness EXTREMITIES : Normal inspection, Normal range of motion, no edema. No clubbing or cyanosis NEUROLOGICAL: Cranial nerves II through XII grossly intact. Normal speech, normal gait, no focal sensorimotor deficits SKIN: Warm, Dry 01/18/18 07:52 ED Treatment Course - LABORATORY CBC & Chemistry Diagram: 01/18/18 08:00 01/18/18 08:00 Medical Decision Making - Medical Decision Making The patient is a 37F who is approximately 11weeks who presents with 6 hours of cramping LUQ abdominal pain that radiates towards her back associated with NBNB emesis and non-bloody diarrhea. Ddx: UTI/pyelonephritis, gastritis, nephrolithiasis; less likely colitis, ruptured uterus, or ectopic ED Course CMP, CBC, UA, UCx Transvaginal US 1L NS for rehydration Ofirmev 1000mg IV once for pain Reglan 10mg IV once for nausea 01/18/18 07:55 Transvaginal US with single live intrauterine . Discussed the US results with the patient and provided her with a copy of the read. Patient's symptoms greatly improved s/p Reglan/Tylenol. Patient likely with gastritis; now tolerating PO Plan for patient to be discharged home with OB follow up and she was given return precautions as well. The patient understands and agrees with the plan of care as outlined above and that questions have been answered to his apparent satisfaction. 01/18/18 10:48 *DC/Admit/Observation/Transfer Diagnosis at time of Disposition: Abdominal pain in Qualifiers: Trimester: second trimester Qualified Code(s): O26.892 - Other specified related conditions, second trimester - Discharge Dispostion Disposition: HOME Condition at time of disposition: Improved Decision to Admit order: No - Prescriptions Prescriptions: Metoclopramide HCl [Reglan -] 10 mg PO DAILY PRN #7 tablet PRN Reason: Nausea - Referrals Referrals: Catie Espinal [Primary Care Provider] - - Patient Instructions Printed Discharge Instructions: DI for Gastritis, DI for Abdominal Pain -- Early Additional Instructions: You were seen in the Emergency Department today for abdominal pain with vomiting and diarrhea. You were evaluated, your ultrasound was normal and your results included in your discharge paperwork. Please review the handouts provided. You were also prescribed Reglan for nausea. Only take up to 1 per day for nausea as needed. Also, please follow up with your OB within the next 1-3 days at [facility]. Return to the Emergency Department if you develop fevers, worsening symptoms, or any new concerning symptoms. - Post Discharge Activity
[2018-01-18 07:26] VITALS: BP 109/66; PULSE 68; TEMP 97.5
[2018-01-18] MEDS ORDERED: ONDANSETRON 4 MG/2 ML VIAL IVPUSH ONE (07:27)
[2018-01-18] MEDS ORDERED: ACETAMINOPHEN 1000 MG/100 ML VIAL (NON FORMULARY) IVPB ONE (07:27)
[2018-01-18] MEDS ORDERED: SODIUM CHLORIDE 0.9% 500 ML INFUS.BAG IV ONE (07:27)
--- NOTE | 2018-01-18 07:40 | PDOC ---
Attending Attestation - HPI HPI: 01/18/18 08:38 The patient is a 37 year old 11 weeks female [id number], with no significant past medical history, who presents to the emergency department with , 6 hours of left upper quadrant abdominal pain. She ranks her pain as initially a 10/10 and now a 7/10 cramping. As per patient, she believes she ate a lot yesterday including multiple fruits and pizza 2 hours prior to the onset of her symptoms. She reports nausea with 4 episodes of nonbloody, nonbilious emesis and multiple episodes of nonbloody diarrhea. She was recently diagnosed with a UTI 3 weeks ago. She denies any recent travel. She denies recent fevers, chills, headache or dizziness. She denies recent constipation. She denies recent dysuria, frequency , urgency or hematuria. Allergies: NKA Past surgical history: None reported. Primary Care Physician: Dr. Catie Espinal - Physicial Exam PE: 01/18/18 08:38 GENERAL: The patient is in no acute distress. HEAD: Normal with no signs of trauma. ENT: Moist mucous membranes. NECK: Normal range of motion, supple without lymphadenopathy, JVD, or masses. LUNGS: Breath sounds equal, clear to auscultation bilaterally. No wheezes, and no crackles. HEART:Regular rate and rhythm, normal S1 and S2 without murmur, rub or gallop. +ABDOMEN: Left upper quadrant tenderness. Soft, normoactive bowel sounds. No guarding, no rebound. No masses palpable. EXTREMITIES: Normal range of motion, no edema. No clubbing or cyanosis. No erythema, or tenderness. NEUROLOGICAL: Cranial nerves II through XII grossly intact. Normal speech. No focal neurological deficits. MUSCULOSKELETAL: Back non-tender to palpation, no CVA tenderness SKIN: Warm, Dry, normal turgor, no rashes or lesions noted. <Puma Hutton - Last Filed: 01/18/18 08:38> - Resident Resident Name: Emanuel Mitchell - ED Attending Attestation I have performed the following: I have examined & evaluated the patient, The case was reviewed & discussed with the resident, I agree w/resident's findings & plan, Exceptions are as noted - Medical Decision Making 01/18/18 09:23 Pt presents with nausea, multiple episodes of non bloody non bilious vomiting, and diarrhea since 3am Pt has pain in the LUQ No tenderness palpable in the lower abdomen No vaginal bleeding noted Laboratory Tests 01/18/18 01/18/18 01/18/18 07:34 08:00 08:00 WBC 8.3 Hgb 11.5 Hct 34.3 Plt Count 247 BUN 13 Creatinine 0.5 L Random Glucose 81 Total Bilirubin 0.4 AST 39 H ALT 27 Urine Ketones Negative Urine Blood Negative Urine Nitrite Negative Ur Leukocyte Esterase Negative Official US negative Will discharge to home Will ask pt to stay hydrated clinical impression: likely gastroenteritis, initial presentation Pt given strict return precautions <Rosibel Garcia - Last Filed: 01/18/18 09:27> Attestations - Attestations 01/18/18 08:39 Documentation prepared by Puma Hutton, acting as rn medical surgical for Rosibel Garcia MD. <Puma Hutton - Last Filed: 01/18/18 08:38>
[2018-01-18] MEDS ORDERED: METOCLOPRAMIDE HCL INJECTION 10 MG/2 ML VIAL IVPUSH ONE (07:41)
[2018-01-18] MEDS ORDERED: METOCLOPRAMIDE HCL INJECTION 10 MG/2 ML VIAL ONE (07:52)
[2018-01-18] MEDS ORDERED: ACETAMINOPHEN INJECTION 100 ML IVPB ONE (07:53)
[2018-01-18 08:07] LABS: HEMATOCRIT 34.3 % (32.4-45.2); HEMOGLOBIN 11.5 GM/dL (10.7-15.3); MCH 26.7 pg (25.7-33.7); MCHC 33.6 g/dl (32.0-36.0); MEAN CELL VOLUME 79.4 fl (80-96); MEAN PLT VOLUME 8.6 fl (7.5-11.1); PLATELET COUNT 247 K/MM3 (134-434); RBC 4.32 M/mm3 (3.60-5.2); RDW 15.7 % (11.6-15.6); WHITE BLOOD COUNT 8.3 K/mm3 (4.0-10.0)
[2018-01-18 08:18] LABS: URINE APPEARANCE CLEAR; URINE BILIRUBIN NEGATIVE (<2.0 mg/dL); URINE COLOR STRAW; URINE GLUCOSE (UA) NEGATIVE (NEGATIVE); URINE KETONE NEGATIVE (NEGATIVE); URINE LEUK ESTERASE NEGATIVE (NEGATIVE); URINE NITRITE NEGATIVE (NEGATIVE); URINE PROTEIN NEGATIVE (NEGATIVE); URINE UROBILINOGEN NEGATIVE mg/dL (0.2-1.0)
[2018-01-18 08:46] LABS: ALBUMIN 3.6 g/dl (3.4-5.0); ANION GAP 7 (8-16); BILIRUBIN,TOTAL 0.4 mg/dL (0.2-1.0); BLOOD UREA NITROGEN 13 mg/dL (7-18); CALCIUM 9.3 mg/dL (8.5-10.1); CHLORIDE 102 mmol/L (98-107); CO2 26 mmol/L (21-32); CREATININE 0.5 mg/dL (0.55-1.02); GLUCOSE,RANDOM 81 mg/dL (74-106); SGPT/ALT 27 U/L (12-78); SODIUM 135 mmol/L (136-145); TOT PROT 7.4 g/dl (6.4-8.2)
[2018-01-18 08:47] LABS: ALK PHOS 58 U/L (45-117); POTASSIUM 4.6 mmol/L (3.5-5.1); SGOT/AST 39 U/L (15-37)
== END 2018-01-18 10:40 | disposition home or self-care (01) ==
LOC: JER 05:48
PROC: 3E033GC Introduction of Other Therapeutic Substance into Peripheral Vein, Percutaneous Approach (ICD-10-PCS; principal; 2018-01-18)
DX: O26.891 Other specified pregnancy related conditions, first trimester (principal); Z3A.11 11 weeks gestation of pregnancy; R10.12 Left upper quadrant pain; R11.10 Vomiting, unspecified; F17.210 Nicotine dependence, cigarettes, uncomplicated
CPT/HCPCS: 36415; 76817-TC; 80053; 81003; 85027; 87086; 99284-25; J0131

== ENCOUNTER 2018-04-01 19:31 | Emergency (ER) | payer OTHER ==
[2018-04-01 19:46] VITALS: BMI 29.2
--- NOTE | 2018-04-01 19:49 | PDOC ---
Rapid Medical Evaluation Chief Complaint: Pain Time Seen by Provider: 04/01/18 19:42 Medical Evaluation: Allergies Allergy/AdvReac Type Severity Reaction Status Date / Time No Known Allergies Allergy Verified 04/01/18 19:46 Vital Signs Temp Pulse Resp BP Pulse Ox 98.9 F 82 18 114/73 100 04/01/18 19:40 04/01/18 19:40 04/01/18 19:40 04/01/18 19:40 04/01/18 19:40 04/01/18 19:48 Pt presents to the ED for R sided chest pain. States it is along the R ribs. Is also having cramping in the R abdomen. Pt is currently 26 weeks with light pink vaginal discharge and abdominal cramping Exam:RRR, CTAB Orders: EKG Pt to proceed to ED for further evaluation Discharge Disposition - Diagnosis Chest pain, - Referrals - Patient Instructions - Post Discharge Activity
[2018-04-01 22:09] VITALS: BP 110/59; PULSE 80; TEMP 97.9
[2018-04-02] MEDS ORDERED: ACETAMINOPHEN 500 MG TABLET (FP) PO ONE (00:27)
[2018-04-02] MEDS ORDERED: AMOX TR/POT CLAV 875MG/125MG TABLETS (FP) PO ONE (01:10)
[2018-04-02] MEDS ORDERED: SODIUM CHLORIDE 1,000 ML IV STA (01:20)
--- NOTE | 2018-04-02 01:35 | PDOC ---
Attending Attestation - Resident Resident Name: DemetriaLuiza - ED Attending Attestation I have performed the following: I have examined & evaluated the patient, The case was reviewed & discussed with the resident, I agree w/resident's findings & plan, Exceptions are as noted - Physicial Exam PE: 04/02/18 01:28 awake alert lungs clear bilaterally heart rrr no mrg. abd soft nt nd. gravid. ext wwp. mild edema. nonpitting. - Medical Decision Making 04/02/18 01:29 37 yo F currently 24 weeks here with c/o bilateral abd pain, crampy in nature, worse with movment, deep breathing, touching also c/o pinkish fluid via vagina. pt was evaluted in labor and delivery prior. states they did vaginal exam, told cervix is closed. no h/o pe or dvt. no current cp or sob. does feel sob sometimes with walking. has had bilat leg swelling. no other comlaints. no dysuria. differential uti pyelo, cramps, msk strain pain, pt no sxs c/w pe or dvt. no tachy or hypoxia. focused ED us transabdominal ob heart 141 bpm, movement noted. impression: live IUP normal heart rate. focused ed renal ultrasound, indication flank pain bilateral kidneys scanned in two planes. no hydroneprhosis noted. bladder nondistended. gravid uterus. impresion: normal renal ultrasound focused ED tte: hear with good contractilty, no rv dilation or strain patter, no pericardial effusion. impression: normal tte. plan ua r/o uti, labs iv hydration. sxs are very reproducable. tylenol for pain reassess. <Lisa Mccarthy - Last Filed: 04/02/18 01:27> - HPI HPI: 04/02/18 01:36 The patient is a 32 year old female, 24 weeks [id number] (2 miscarriages) , who presents to the ED for chest pain. Patient was evaluated by Labor and Delivery, everything was normal, and was sent to the ED. Patient complains of right sided chest pain that radiates down to her groin every time she walks. Patient states when she sits down, her pain goes away. She also reports mild abdominal cramping, diarrhea, and slight pink vaginal discharge. Denies vaginal bleeding. Denies fever or chills. Denies any other symptoms. <Chau Echeverria - Last Filed: 04/02/18 01:37> Attestations - Attestations 04/02/18 01:37 Documentation prepared by Chau Echeverria, acting as medical insurance collector for Lisa Mccarthy MD <Chau Echeverria - Last Filed: 04/02/18 01:37>
[2018-04-02 02:22] LABS: URINE APPEARANCE CLEAR; URINE BILIRUBIN NEGATIVE (<2.0 mg/dL); URINE COLOR LTYELLOW; URINE GLUCOSE (UA) NEGATIVE (NEGATIVE); URINE KETONE NEGATIVE (NEGATIVE); URINE LEUK ESTERASE NEGATIVE (NEGATIVE); URINE NITRITE NEGATIVE (NEGATIVE); URINE PROTEIN NEGATIVE (NEGATIVE)
--- NOTE | 2018-04-02 02:24 | PDOC ---
History of Present Illness - General Chief Complaint: Labor Assessment Stated Complaint: CHEST PAIN/26 WKS Time Seen by Provider: 04/01/18 19:42 History Source: Patient Exam Limitations: No Limitations - History of Present Illness Initial Comments: 04/02/18 02:19 Pt is a 37yo [id number] presenting to ED with complaints of R sided back/chest pain that radiates to her groin when she walks. She is also complaining of pink stains on the tissue when she wipes which she thinks is spotting and cramping. Pt is 23 weeks and 5 days along. Pt said the pain started this morning at 2am when she was at work associated with shortness of breath. Pain is better with rest and aggrevated by walking and taking in deep breaths. She admits to diarrhea and urinary frequency. She denies cough, chest pain, palpitaitons, pain in the calves, abdominal pain, n/v, hematuria, dysuria, water breaking.[facility] PMH: none PSH: c/section Meds: none Social: quit tobacco 2 months ago allergies: nkda Past History - Past Medical History Allergies/Adverse Reactions: Allergies Allergy/AdvReac Type Severity Reaction Status Date / Time No Known Allergies Allergy Verified 04/01/18 19:46 Home Medications: Ambulatory Orders Metoclopramide HCl [Reglan -] 10 mg PO DAILY PRN #7 tablet 01/18/18 COPD: No Thyroid Disease: No - Reproductive History (#): 7 Para: 3 Cervical CA: No Dysfunctional Uterine Bleeding: No Ectopic : No Endometrial CA: No Polycystic Ovaries: No Therapeutic (s) & number: Yes (2) Tubal Ligation: No Spontaneous : 1 - Suicide/Smoking/Psychosocial Hx Smoking History: Current some day smoker Have you smoked in the past 12 months: Yes Number of Cigarettes Smoked Daily: 4 If you are a former smoker, when did you quit?: 3 mths ago Information on smoking cessation initiated: No 'Breaking Loose' booklet given: 05/29/16 Hx Alcohol Use: No Drug/Substance Use Hx: No Substance Use Type: None Hx Substance Use Treatment: No Review of Systems - Review of Systems Constitutional: No: Chills, Fever HEENTM: No: Symptoms Reported Respiratory: Yes: SOB with Exertion. No: Cough, Wheezing, Hemoptysis Cardiac (ROS): No: Chest Pain, Lightheadedness, Palpitations, Syncope ABD/GI: Yes: Diarrhea, Abdominal cramping. No: Constipated, Nausea, Rectal Bleeding, Vomiting : Yes: Frequency. No: Burning, Hematuria, Incontinence, Urgency Musculoskeletal: Yes: See HPI, Back Pain, Muscle Pain. No: Neck Pain Integumentary: No: Symptoms Reported Neurological: No: Headache, Numbness, Tingling, Tremors, Weakness *Physical Exam - Vital Signs Last Vital Signs Temp Pulse Resp BP Pulse Ox 97.9 F 80 16 110/59 L 100 04/01/18 22:09 04/01/18 22:09 04/01/18 22:09 04/01/18 22:09 04/01/18 19:40 - Physical Exam General Appearance: Yes: Appropriately Dressed, Obese. No: Apparent Distress HEENT: positive: EOMI, SAMMY, Normal ENT Inspection Neck: positive: Trachea midline. negative: Lymphadenopathy (R), Lymphadenopathy (L) Respiratory/Chest: positive: Lungs Clear, Normal Breath Sounds. negative: Crackles, Rales, Rhonchi, Stridor, Wheezing Cardiovascular: positive: Regular Rhythm, Regular Rate, S1, S2. negative: Edema , JVD, Murmur Vascular Pulses: Carotid (R): 2+, Carotid (L): 2+, Dorsalis-Pedis (R): 2+, Doralis-Pedis (L): 2+ Gastrointestinal/Abdominal: positive: Normal Bowel Sounds, Soft, Tenderness ( diffuse tenderness). negative: Distended, Guarding, Rebound Musculoskeletal: positive: Vertebral Tenderness, Other (diffuse back tenderness ). negative: CVA Tenderness Extremity: positive: Pedal Edema, Swelling. 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 23 weeks and 5 days. Vitals: wnl PE; diffuse back tenderness and abdominal tenderness, mainly along ribcage. -Pt denies trauma. 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 Pt was seen on OB floor and cleared. EKG done in triage. Per ARIANA Macias, ekg was nsr without signs of infarct. DDx: pyelonephritis, nephrolithiasis, uti, pe, acs, pna, ptx Low suspicion for lung etiology due to benign exam. PE less likely given symptoms are exacerbated by walking. Seems more msk in nature. Lower suspicion for pyelo and nephrolithiasis given pain is exacerbated by walking and relieved with rest. Bedside u/s negative for hydronephrosis, gallstones, cardiac abnormalities and lung abnormalities. FHR 144. UA, UCx pending. CBC, CMP and troponin pending. Will give pt Tylenol for pain and reevalualte. If labs are normal, and pain controlled with tylenol, pt can be dc home with ob follow up. Signed out to Dr. [place] *DC/Admit/Observation/Transfer Diagnosis at time of Disposition: Chest pain Qualifiers: Chest pain type: unspecified Qualified Code(s): R07.9 - Chest pain, unspecified Qualifiers: Weeks of gestation: 23 weeks Qualified Code(s): Z3A.23 - 23 weeks gestation of Back pain affecting Qualifiers: Trimester: second trimester Qualified Code(s): O99.89 - Other specified diseases and conditions complicating , childbirth and the puerperium - Discharge Dispostion Disposition: HOME Condition at time of disposition: Stable - Referrals Referrals: [facility] [Provider Group] - Patient Instructions Printed Discharge Instructions: DI for Thoracic Back Pain Additional Instructions: LABOR & DELIVERY DISCHARGE: REST AT HOME DIET TOLERATED KEEP CLINIC APPT ON 04/06/18 INCREASE FLUIDS BY MOUTH RETURN TO L&D IF: REGULAR CONTRACTIONS DECREASED MOVEMENT RUPTURE OF MEMBRANES VAGINAL BLEEDING You were seen here today for evaluation of back/chest pain when you walk. All of your tests were normal. Please follow up with an box storage worker for further care during your . You can call [phone] to schedule an appointment with any of the physicians there. Since you saw Dr. Kenney in the hospital, you can schedule an appointment with him. Come back to the emergency room if: your pain gets worse, you have difficulty breathing, cramping gets worse, you have vaginal bleeding or if any new concerning symptom develops. Thank you - Post Discharge Activity Forms/Work/School Notes: Back to Work
[2018-04-02] MEDS ORDERED: ACETAMINOPHEN 325 MG TABLET (FP) ONE (02:25)
[2018-04-02] MEDS ORDERED: AMOX TR/POT CLAV 875MG/125MG TABLETS (FP) ONE (02:25)
[2018-04-02 02:59] LABS: BASO % 0.2 % (0-2.0); EOS % 0.8 % (0-4.5); HEMATOCRIT 33.1 % (32.4-45.2); HEMOGLOBIN 10.8 GM/dL (10.7-15.3); LYMPH % 26.5 % (8-40); MCH 26.5 pg (25.7-33.7); MCHC 32.5 g/dl (32.0-36.0); MEAN CELL VOLUME 81.6 fl (80-96); MEAN PLT VOLUME 9.1 fl (7.5-11.1); MONO % 8.7 % (3.8-10.2); NEUT % 63.8 % (42.8-82.8); PLATELET COUNT 247 K/MM3 (134-434); RBC 4.06 M/mm3 (3.60-5.2); RDW 14.4 % (11.6-15.6); WHITE BLOOD COUNT 6.3 K/mm3 (4.0-10.0)
[2018-04-02 03:46] LABS: ALBUMIN 3.1 g/dl (3.4-5.0); ALK PHOS 70 U/L (45-117); ANION GAP 6 MMOL/L (8-16); BILIRUBIN,TOTAL 0.3 mg/dL (0.2-1); BLOOD UREA NITROGEN 7 mg/dL (7-18); CALCIUM 8.4 mg/dL (8.5-10.1); CHLORIDE 105 mmol/L (98-107); CO2 26 mmol/L (21-32); CREATININE 0.6 mg/dL (0.55-1.3); GLUCOSE,RANDOM 63 mg/dL (74-106); SGOT/AST 22 U/L (15-37); SGPT/ALT 16 U/L (13-61); SODIUM 137 mmol/L (136-145); TOT PROT 7.1 g/dl (6.4-8.2)
--- NOTE | 2018-04-02 04:55 | PDOC ---
*Physical Exam - Vital Signs Last Vital Signs Temp Pulse Resp BP Pulse Ox 97.9 F 80 16 110/59 L 100 04/01/18 22:09 04/01/18 22:09 04/01/18 22:09 04/01/18 22:09 04/01/18 19:40 ED Treatment Course - LABORATORY CBC & Chemistry Diagram: 04/02/18 02:14 04/02/18 02:14 - ADDITIONAL ORDERS Additional order review: Laboratory Results 04/02/18 04/02/18 04/02/18 02:14 02:14 01:29 Sodium 137 Potassium 4.0 Chloride 105 Carbon Dioxide 26 Anion Gap 6 L BUN 7 Creatinine 0.6 Creat Clearance w eGFR > 60 Random Glucose 63 L Calcium 8.4 L Total Bilirubin 0.3 AST 22 ALT 16 Alkaline Phosphatase 70 Troponin I < 0.02 Total Protein 7.1 Albumin 3.1 L Urine Color Ltyellow Urine Appearance Clear Urine pH 7.0 Ur Specific [place] 1.019 Urine Protein Negative Urine Glucose (UA) Negative Urine Ketones Negative Urine Blood Negative Urine Nitrite Negative Urine Bilirubin Negative Urine Urobilinogen 2.0 H Ur Leukocyte Esterase Negative 04/02/18 02:14 RBC 4.06 MCV 81.6 MCHC 32.5 RDW 14.4 MPV 9.1 Neutrophils % 63.8 Lymphocytes % 26.5 D Monocytes % 8.7 Eosinophils % 0.8 D Basophils % 0.2 - Medications Given in the ED: ED Medications Discontinued Medications Generic Name Dose Route Start Last Admin Trade Name Freq PRN Reason Stop Dose Admin Acetaminophen 975 mg 04/02/18 00:27 04/02/18 02:26 Tylenol - PO 04/02/18 00:28 975 mg ONCE ONE Administration Amoxicillin/Clavulanate Potassium 1 tab 04/02/18 01:10 04/02/18 02:26 Augmentin - 875mg Tablet PO 04/02/18 01:11 1 tab ONCE ONE Administration Sodium Chloride 1,000 mls @ 1,000 mls/hr 04/02/18 01:20 04/02/18 02:26 Normal Saline - IV 04/02/18 02:19 1,000 mls/hr ASDIR STA Administration *DC/Admit/Observation/Transfer Diagnosis at time of Disposition: Chest pain Qualifiers: Chest pain type: unspecified Qualified Code(s): R07.9 - Chest pain, unspecified Qualifiers: Weeks of gestation: 23 weeks Qualified Code(s): Z3A.23 - 23 weeks gestation of Back pain affecting Qualifiers: Trimester: second trimester Qualified Code(s): O99.89 - Other specified diseases and conditions complicating , childbirth and the puerperium - Discharge Dispostion Disposition: HOME Condition at time of disposition: Stable - Referrals Referrals: [facility] [Provider Group] - Patient Instructions Printed Discharge Instructions: DI for Thoracic Back Pain Additional Instructions: LABOR & DELIVERY DISCHARGE: REST AT HOME DIET TOLERATED KEEP CLINIC APPT ON 04/06/18 INCREASE FLUIDS BY MOUTH RETURN TO L&D IF: REGULAR CONTRACTIONS DECREASED MOVEMENT RUPTURE OF MEMBRANES VAGINAL BLEEDING You were seen here today for evaluation of back/chest pain when you walk. All of your tests were normal. Please follow up with an distribution supervisor for further care during your . You can call [phone] to schedule an appointment with any of the physicians there. Since you saw Dr. Kenney in the hospital, you can schedule an appointment with him. Come back to the emergency room if: your pain gets worse, you have difficulty breathing, cramping gets worse, you have vaginal bleeding or if any new concerning symptom develops. Thank you - Post Discharge Activity Forms/Work/School Notes: Back to Work
--- NOTE | 2018-04-02 09:25 | EKG ---
Test Reason : Blood Pressure : / mmHG Vent. Rate : 084 BPM Atrial Rate : 084 BPM P-R Int : 150 ms QRS Dur : 080 ms QT Int : 358 ms P-R-T Axes : 048 064 052 degrees QTc Int : 423 ms NORMAL SINUS RHYTHM NORMAL ECG WHEN COMPARED WITH ECG OF 01-APR-2018 19:44, NO SIGNIFICANT CHANGE WAS FOUND Confirmed by NASRIN MIN MD ([id number]) on 04/02/2018 9:25:39 AM Referred By: Confirmed By:NASRIN MIN MD
== END 2018-04-02 05:01 | disposition home or self-care (01) ==
LOC: JER 19:31
PROC: 3E0337Z Introduction of Electrolytic and Water Balance Substance into Peripheral Vein, Percutaneous Approach (ICD-10-PCS; principal; 2018-04-01)
DX: O90.89 Other complications of the puerperium, not elsewhere classified (principal); O99.89 Other specified diseases and conditions complicating pregnancy, childbirth and the puerperium; M54.9 Dorsalgia, unspecified; R07.9 Chest pain, unspecified; Z3A.23 23 weeks gestation of pregnancy
CPT/HCPCS: 36415; 80053; 81003; 84484; 85025; 87086; 93005; 93010; 99282-25; J7030

== ENCOUNTER 2018-06-10 08:45 | Emergency (ER) | payer OTHER ==
[2018-06-10 08:51] VITALS: BMI 86.7
[2018-06-10 11:02] LABS: BASO % 0.2 % (0-2.0); EOS % 0.8 % (0-4.5); HEMATOCRIT 30.2 % (32.4-45.2); HEMOGLOBIN 9.8 GM/dL (10.7-15.3); LYMPH % 17.6 % (8-40); MCH 26.2 pg (25.7-33.7); MCHC 32.6 g/dl (32.0-36.0); MEAN CELL VOLUME 80.5 fl (80-96); MEAN PLT VOLUME 8.8 fl (7.5-11.1); NEUT % 72.4 % (42.8-82.8); PLATELET COUNT 211 K/MM3 (134-434); RBC 3.75 M/mm3 (3.60-5.2); WHITE BLOOD COUNT 6.9 K/mm3 (4.0-10.0)
[2018-06-10 11:13] LABS: INR 0.93 (0.83-1.09)
[2018-06-10 11:16] LABS: ACTIVATED PTT 24.2 SECONDS (25.2-36.5)
[2018-06-10 11:31] LABS: ANION GAP 8 MMOL/L (8-16); BLOOD UREA NITROGEN 7 mg/dL (7-18); CALCIUM 8.2 mg/dL (8.5-10.1); CHLORIDE 107 mmol/L (98-107); CO2 23 mmol/L (21-32); CREATININE 0.5 mg/dL (0.55-1.3); GLUCOSE,RANDOM 94 mg/dL (74-106); POTASSIUM 3.8 mmol/L (3.5-5.1); SODIUM 138 mmol/L (136-145)
[2018-06-10 12:43] VITALS: BP 119/64; PULSE 75; TEMP 98.4
--- NOTE | 2018-06-14 16:33 | EKG ---
Test Reason : Blood Pressure : / mmHG Vent. Rate : 093 BPM Atrial Rate : 093 BPM P-R Int : 144 ms QRS Dur : 076 ms QT Int : 358 ms P-R-T Axes : 030 073 047 degrees QTc Int : 445 ms NORMAL SINUS RHYTHM NORMAL ECG WHEN COMPARED WITH ECG OF 01-APR-2018 20:00, NO SIGNIFICANT CHANGE WAS FOUND Confirmed by EMILY ZAIDI MD ([id number]) on 06/14/2018 4:32:33 PM Referred By: Confirmed By:EMILY ZAIDI MD
== END 2018-06-10 12:20 | disposition home or self-care (01) ==
LOC: JER 08:45 → UNDOADMIN 09:05 → JLDR 09:05 → JER 12:20
DX: O99.89 Other specified diseases and conditions complicating pregnancy, childbirth and the puerperium (principal); R05 Cough; Z3A.38 38 weeks gestation of pregnancy
CPT/HCPCS: 36415; 80048; 85025; 85610; 85730; 86593; 86850; 86900; 86901; 87081; 87086; 93005; 93010; 99281-25

== ENCOUNTER 2018-07-13 09:48 | Inpatient (IN) | payer OTHER ==
[2018-07-13 10:33] LABS: BASO % 0.2 % (0-2.0); EOS % 0.7 % (0-4.5); HEMATOCRIT 32.6 % (32.4-45.2); HEMOGLOBIN 10.9 GM/dL (10.7-15.3); LYMPH % 18.8 % (8-40); MCH 26.3 pg (25.7-33.7); MCHC 33.5 g/dl (32.0-36.0); MEAN CELL VOLUME 78.6 fl (80-96); MEAN PLT VOLUME 9.1 fl (7.5-11.1); MONO % 6.1 % (3.8-10.2); NEUT % 74.2 % (42.8-82.8); PLATELET COUNT 241 K/MM3 (134-434); RBC 4.15 M/mm3 (3.60-5.2); WHITE BLOOD COUNT 7.8 K/mm3 (4.0-10.0)
[2018-07-13 10:46] LABS: INR 0.92 (0.83-1.09); PROTHROMBIN TIME (PATIENT) 10.8 SEC (9.7-13.0)
[2018-07-13 11:33] LABS: ALBUMIN 2.8 g/dl (3.4-5.0); ALK PHOS 215 U/L (45-117); ANION GAP 11 MMOL/L (8-16); BILIRUBIN,TOTAL 0.4 mg/dL (0.2-1); BLOOD UREA NITROGEN 8 mg/dL (7-18); CALCIUM 8.9 mg/dL (8.5-10.1); CHLORIDE 103 mmol/L (98-107); CO2 21 mmol/L (21-32); CREATININE 0.7 mg/dL (0.55-1.3); GAMMA GLUTAMYL TRANSPEPTIDASE 7 U/L (5-85); GLUCOSE,RANDOM 116 mg/dL (74-106); POTASSIUM 3.9 mmol/L (3.5-5.1); SGOT/AST 16 U/L (15-37); SGPT/ALT 18 U/L (13-61); SODIUM 135 mmol/L (136-145); TOT PROT 6.8 g/dl (6.4-8.2); URIC ACID 3.2 mg/dL (2.6-7.2)
[2018-07-13] MEDS ORDERED: ELECTROLYTE-148 SOLN 1,000 ML IV SCH ×3 (11:55→13:15)
[2018-07-13 12:42] LABS: URINE APPEARANCE SLCLOUDY; URINE BILIRUBIN NEGATIVE (<2.0 mg/dL); URINE COLOR LTYELLOW; URINE GLUCOSE (UA) NEGATIVE (NEGATIVE); URINE KETONE NEGATIVE (NEGATIVE); URINE LEUK ESTERASE NEGATIVE (NEGATIVE); URINE NITRITE NEGATIVE (NEGATIVE); URINE PROTEIN NEGATIVE (NEGATIVE); URINE UROBILINOGEN NEGATIVE mg/dL (0.2-1.0)
[2018-07-13 12:53] LABS: RETICULOCYTES 1.83 % (0.5-1.5)
[2018-07-13] MEDS ORDERED: ELECTROLYTE-148 SOLN 1,000 ML IV ONE (13:15)
[2018-07-13] MEDS ORDERED: CITRIC ACID/SODIUM CITRATE 30 ML UNIT-DOSE CUP PO ONE (13:15)
[2018-07-13 13:51] VITALS: BMI 42.0
--- NOTE | 2018-07-13 15:30 | HP ---
Past Medical History - Primary Care Physician PCP:: Adelina Lakhani - Admission Chief Complaint: 37 yrs ( AMA) G13, P3093 , Previous c/s x3 , 39 week by sono c/ o onset of UC since 11.00 AM ,uc continue after iv hydration also is admitted for repeat c/section. she also requests voluntory sterlization History of Present Illness: PNC at [address] [place] [address] . wt gain 36 lbs panel 12/22/17 O Pos, Rpr nr, Hbsag neg, Rubella immune , Hiv neg , Sickle neg , BV pos ( treated rx Metrogel gel ) , sickle neg , pap Nilm, hpv neg , gc/ct neg 1hr Gtt 88, rpr nr . Quantiferon neg 06/21/18 Gbs neg, hiv neg h/h 10.131.3 , plt 236 , gc/ct neg songrams done for growth, NT screen neg . sequential not done, genetic counselling not done last sono on 06/17/18 35.2 wks, vx, ant placenta,afi12.8cm,efw 5'4"(22%tile), bpp 01/20 treated for Recuurent UTI with keflex in 02/22/18 ,resistant bacteria , rx po amoxcillin was given . last time she received Rx Po Macrobid 05/18/18 History Source: Patient, Medical Record Limitations to Obtaining History: No Limitations - Past Medical History MOUNTAIN GUIDE: No: Migraine, Seizure Cardiovascular: No: HTN, Murmur Pulmonary: No: Asthma Gastrointestinal: Yes: Constipation Renal/: Yes: UTI (recurrent bacteriuria , rx keflex, amoxcillin, macrobid during ) ...: 13 ...Para: 3 ...Term: 3 ...: 0 ...Spon : 1 ...Induced : 8 ...Multiple Gestation: 0 ...LMP: 10/15/17 ... Weeks Gestation by Dates: 38.5 ...EDC by Dates: 07/22/18 ...EDC by Sono: 07/20/18 (39 weeks by sono ) Additional OB History: G1 08/21/2002 40 wks 5lb, primary c/section distress [facility]. G2 12. 38 wks 6' repeat c/s [facility]. G3 08/02/2008 38 wks 6'5" repeat c/s [facility] Heme/Onc: Yes: Anemia (rx po iron & pnv) Infectious Disease: No: AIDS, HIV, STD's, Tuberculosis Psych: No: Addictions, Anxiety, Bipolar, Depression, Panic, Psychosis, Schizophrenia, Other Endocrine: No: Diabetes Mellitus, Hypothyroidism - Past Surgical History Past Surgical History: Yes: (c/sections 08/2002, 05/2005, 07/2008) Hx Myomectomy: No Hx Transabdominal Cerclage: No Additional Surgical History: h/o Right foot surgery - Smoking History Smoking history: Never smoked Have you smoked in the past 12 months: No - Alcohol/Substance Use Hx Alcohol Use: No History of Substance Use: reports: Marijuana (last useed approx 6 months ago) Home Medications - Allergies Allergies/Adverse Reactions: Allergies Allergy/AdvReac Type Severity Reaction Status Date / Time No Known Allergies Allergy Verified 07/13/18 11:59 - Home Medications Home Medications: Ambulatory Orders Ferrous Sulfate [Feosol] 325 mg PO DAILY 07/13/18 Pnv No.95/Ferrous Fum/Folic AC [ Vitamin Tablet] 1 each PO DAILY Physical Exam - Maternity Vital Signs: Vital Signs Temperature 98.1 F 07/13/18 12:45 Pulse Rate 79 07/13/18 12:45 Respiratory Rate 18 07/13/18 12:45 Blood Pressure 132/66 07/13/18 12:45 O2 Sat by Pulse Oximetry (%) Selected Entries 07/13/18 12:45 Weight 230 lb Constitutional: Yes: Well Nourished, Calm, Mild Distress, Obese Eyes: Yes: WNL HENT: Yes: WNL Neck: Yes: WNL Cardiovascular: Yes: WNL, Regular Rate and Rhythm Lungs: Clear to auscultation Breast(s): Yes: WNL - Abdominal Exam/OB Fundal Height: 40 Number of Fetuses: Single Presentation: Vertex Contractions: Yes Regularity: Regular (q3-5 min) Intensity: Mild/Mod Monitor Mode: External Heart Rate (range): 135 Heart Rate Location: [facility] Category: I Accelerations: Uniform Decelerations: None - Vaginal Exam/OB Vaginal Bleediing: No Speculum Exam: No Dilatation (cm): close Effacement (%): unefface Amniotic Membrane Status: Intact Presentation: Vertex/Position Station: -3 - Physical Exam Musculoskeletal: Yes: WNL Extremities: Yes: WNL. No: Calf Tenderness Edema: Yes Edema: LLE: 1+, RLE: 1+ Integumentary: Yes: WNL, Incision (pfannensteil incision keloid), Tattoos Deep Tendon Reflex Grade: Normal +2 ...Motor Strength: WNL Psychiatric: Yes: WNL - Labs Lab Results: CBC, BMP 07/13/18 10:22 07/13/18 10:22 Laboratory Tests 07/13/18 07/13/18 07/13/18 10:22 10:22 11:32 PT with INR 10.80 INR 0.92 RPR Titer Nonreactive Blood Type O POSITIVE Antibody Screen Negative Hemorrhage Risk Assessment - Risk Factors Medium Risk Factors: Yes: Prior , uterine surgery,or multiple laparotomies, Obesity (BMI >40) Risk Score: 2 Risk Level: High Risk Problem List - Problems (1) 39 weeks gestation of Code(s): Z3A.39 - 39 WEEKS GESTATION OF (2) Previous section Code(s): Z98.891 - HISTORY OF UTERINE SCAR FROM PREVIOUS SURGERY (3) Labor established Code(s): VVU1799 - (4) Morbid obesity with BMI of 40.0-44.9, adult Code(s): E66.01 - MORBID (SEVERE) OBESITY DUE TO EXCESS CALORIES; Z68.41 - BODY MASS INDEX (BMI) 40.0-44.9, ADULT (5) AMA (advanced maternal age) multigravida 35+ Code(s): O09.529 - SUPERVISION OF ELDERLY MULTIGRAVIDA, UNSPECIFIED TRIMESTER (6) Multiparity Code(s): Z64.1 - PROBLEMS RELATED TO MULTIPARITY Assessment/Plan 37 yrs , previous c/s x3, obese, reg uc since 11.00am in labor , gbs neg, multiparity , requests for Repeat C/section & voluntary sterilization Plan Repeat c/section + BTL
[2018-07-13] MEDS ORDERED: morphine SULFATE/Preservative Free 0.5 MG/ML (1cc Syringe) ONE (16:19)
[2018-07-13] MEDS ORDERED: PHENYLEPHRINE HCL 10 MG/1 ML SINGLE DOSE VIAL ONE (16:19)
[2018-07-13] MEDS ORDERED: OXYTOCIN 20 UNITS in 0.9% NS 40 UNIT/2,000 ML INFUS.BAG IV ONE (16:20)
[2018-07-13] MEDS ORDERED: ONDANSETRON 4 MG/2 ML VIAL IVPUSH PRN (16:47)
[2018-07-13] MEDS ORDERED: ACETAMINOPHEN 325 MG TABLET (FP) PO PRN (16:47)
[2018-07-13] MEDS ORDERED: BENZOCAINE 28 GM HEMORRHOIDAL OINTMENT TP PRN (17:58)
[2018-07-13] MEDS ORDERED: BENZOCAINE 20% 57 GM BOTTLE TP PRN (17:58)
[2018-07-13] MEDS ORDERED: WITCH HAZEL 50% (TUCKS) 40 PAD/JAR PAD TP PRN (17:58)
[2018-07-13] MEDS ORDERED: METHYLERGONOVINE MALEATE 0.2 MG/1 ML AMP IM PRN (17:58)
[2018-07-13] MEDS ORDERED: OXYTOCIN 20 UNITS in 0.9% NS 20 UNIT/1,000 ML INFUS.BAG IV SCH (18:00)
--- NOTE | 2018-07-13 18:17 | PN ---
Delivery - Delivery Section: Repeat, Low Flap Transverse (BTL) Type of Anesthesia: Spinal Episiotomy/Laceration: None EBL (cc): 500 (woo catheter output 150 ml lorelei ) Delivery, Single - Stages of Labor Date of Delivery: 07/13/18 Time of Delivery: 16:52 Time Placenta Delivered: 16:54 Placenta: Yes: Manual Removal, Uterine Exploration - Condition of Canvass Manager/Deli Cook Present: Yes Name: Miguel Cruz Infant Gender: Male Weight: 6 lb 3 oz Position: Left, OT Total Hours ROM (Hrs/Mins): 3min - 1 Minute Total Score: 9 5 Minutes Total Score: 9 - Feeding Plan Initial Plan: Elected not to breastfeed exclusively throughout hospitalization Remarks - Remarks Remarks: 37 yrs( AMA) , , 39 weeks , gbs neg , in labor with UC regular x 3- 5 min pnc at [address] [place] [address] Indication: 39 weeks, previous c/s x3 , Multiparity , In labor Intraop course uneventful . iv 2 gm IV ancef prior to incision was given
--- NOTE | 2018-07-13 18:29 | OP ---
Operative Note - Note: Operative Date: 07/13/18 Pre-Operative Diagnosis: 39 weeks, previousc/sx3, multiparity , in labor morbid obesity Operation: Repet LFTC/section & BTL Findings: r4.52 PM, Baby Boy, Vx, LOP , 9/9 Wt 6'3', Ht 19" Both tubes & ovaries normal . tubes ligated , cut by modified Ashby technique Dr Miguel Cruz present in OR Surgeon: Adelina Lakhani Etcher [employer] Boards: Abdifatah Mcclain Anesthesiologist/C APPLICATION DEVELOPER: Jacques Greenberg Anesthesia: Spinal Specimens Removed: placenta. cord blood Estimated Blood Loss (mls): 500 Drains, Volume Out (mls): 100 (woo output lorelei color ) Fluid Volume Replaced (mls): 1,500 Operative Report Dictated: Yes
[2018-07-13] MEDS ORDERED: IBUPROFEN 800 MG/8 ML IJ IVPB ONE (18:33)
[2018-07-13] MEDS: IBUPROFEN 800 MG/8 ML IJ IVPB PRN (18:35)
--- NOTE | 2018-07-13 19:17 | OP ---
DATE OF OPERATION: 07/13/2018 PREOPERATIVE DIAGNOSES: 1. 39 weeks, previous section x3, multiparity, in labor. 2. Morbid obesity. OPERATION DONE: Repeat low-flap transverse section, bilateral tubal ligation. SURGEON: Adelina Lakhani MD COMMUNITY ACTION WORKER SURGEON: Johny Gardiner MD ANESTHESIOLOGIST: Jacques Greenberg MD ANESTHESIA: Spinal. YOUTH DEVELOPMENT SPECIALIST: Miguel Cruz MD FINDINGS: This is a 37-year-old 13, para 3-0-9-3, previous 3 C-sections, and she came in labor. Her contractions were between 3-5 minutes, regular. Cervix was still closed. Vertex was -3 station. Patient's BMI is 42.1. Her weight is 230 pounds. PROCEDURE: Patient was taken to the operating room table. Prior to that, abdomen was shaved, prepped. Bolden catheter was placed. Spinal anesthesia was given. She was placed in supine position. Abdomen was painted and draped in usual manner. Then, Pfannenstiel incision was made through previous scar in skin and subcutaneous tissue. Anterior rectus sheath was incised transversely. Bleeding points were clamped and cauterized. Then, rectus muscle was from the rectus sheath. Parietal peritoneum was opened vertically. Lower flap of bladder peritoneum was incised transversely. Bladder was pushed down. Lower uterine segment was isolated. Lower uterine segment was incised transversely. Bleeding points were clamped, and the lower uterine segment was incised transversely. Amniotic sac, clear fluid, was incised, and the baby was delivered at 4:52 p.m. from LOP position, baby boy. Apgars were 9 and 9, and the cord was clamped, cut. Cord blood was collected. Baby's weight is 6 pounds 3 ounces. Then, the placenta was removed completely with the membranes. Uterus was exteriorized, and then, the uterine cavity was completely cleaned. Uterine incision was closed in 2 layers. First layer was a continuous locking with a Biosyn 0 suture. Second layer was a continuous, intermittently locking with a Biosyn 0 suture. Hemostasis was verified. Bladder peritoneum was closed with a Biosyn 0 suture. Then, both the tubes and ovaries were inspected. They were normal. First, the left tube, then the right tube was held with the mid-ampullary portion, and that portion of the tube was doubly ligated with a plain 2-0 catgut. Portion of the tube above the ligature was cut and sent for pathology examination, and the endos was cauterized. Hemostasis was checked. This procedure was done on the right tube, also, and then, the uterus was placed back into the peritoneal cavity. Irrigation was done. Re-inspection of the tubes was done. The hemostasis was once again verified in the tubes and also of the lower segment. Then, sponge, instrument, and needle count was correct. Parietal peritoneum was closed with a Vicryl 0 suture. Muscles were approximated together with a Vicryl 0 suture. Interrupted sutures were taken for the muscles. Then, under the anterior rectus sheath, bleeding was checked. Hemostasis was achieved, and anterior rectus sheath was closed with a Vicryl 0 suture. Continuous sutures were taken. Then, skin was released from the underneath scar and the skin was freed and irrigation was done. In subcutaneous tissue, hemostasis again was checked, and hemostasis was done with the cautery. Interrupted sutures were taken with a Biosyn 0 suture in subcutaneous tissue. Then, skin was approximated with ugo. Pressure dressing was given. Estimated blood loss was 500 mL. Intraop urine output was 100 mL. It was lorelei color. She received 2 g of IV Ancef prior to the incision. Timmy [id number]
[2018-07-13 19:51] LABS: COCAINE, UR NEGATIVE ng/ml (CUTOFF=300); METHADONE, UR NEGATIVE ng/ml (CUTOFF=300); OPIATES, URI NEGATIVE ng/ml (CUTOFF=300); PHENCYCLIDINE,URINE NEGATIVE ng/ml (CUTOFF=25); URINE AMPHETAMINES NEGATIVE ng/ml (CUTOFF=500); URINE BARBITURATES NEGATIVE ng/ml (CUTOFF=200); URINE BENZODIAZEPINES NEGATIVE ng/ml (CUTOFF=200)
[2018-07-13] MEDS ORDERED: OXYTOCIN 20 UNITS in 0.9% NS 20 UNIT/1,000 ML INFUS.BAG IV ONE (20:13)
[2018-07-13] MEDS: FERROUS SO4 325 MG TABLET (FP) PO SCH (22:23)
[2018-07-13] MEDS: CEFAZOLIN 1 GM/D5W 1 GM/50 ML BAG IVPB SCH (23:12)
[2018-07-14] MEDS: CEFAZOLIN 1 GM/D5W 1 GM/50 ML BAG IVPB SCH ×3 (02:00→14:38)
[2018-07-14] MEDS: IBUPROFEN 800 MG/8 ML IJ IVPB PRN (05:06)
[2018-07-14 06:06] LABS: BASO % 0.2 % (0-2.0); EOS % 0.4 % (0-4.5); HEMATOCRIT 27.1 % (32.4-45.2); LYMPH % 15.8 % (8-40); MCH 26.5 pg (25.7-33.7); MCHC 33.3 g/dl (32.0-36.0); MEAN CELL VOLUME 79.4 fl (80-96); MEAN PLT VOLUME 8.8 fl (7.5-11.1); MONO % 8.6 % (3.8-10.2); PLATELET COUNT 192 K/MM3 (134-434); RBC 3.42 M/mm3 (3.60-5.2); RDW 13.8 % (11.6-15.6)
[2018-07-14] MEDS ORDERED: oxyCODONE HCL 5 MG TABLET PO PRN (08:00)
--- NOTE | 2018-07-14 09:42 | PN ---
Post Progress Note - Subjective Subjective: c/o pain scale 4/10 not voided since woo is taken out at 9.00AM not passing flatus Post Day: 1 Type of Delivery: Repeat C/S Vital Signs: Vital Signs Temperature 98.3 F 07/14/18 08:25 Pulse Rate 81 07/14/18 08:25 Respiratory Rate 20 07/14/18 08:25 Blood Pressure 109/52 L 07/14/18 08:25 O2 Sat by Pulse Oximetry (%) 100 07/13/18 21:00 Breast Exam: Yes: Soft, Other (plns to BF ). No: Engorged Uterus: Yes: Fundus Firm, Fundus below umbilicus, Non-tender Incision: Yes: Dressing dry and intact. No: Other Abdomen/GI: Yes: Abdomen soft (bs active ), Abdominal Distention (obese abdomen ), Tolerating PO (clear fluids ). No: Tender, Passing flatus Lochia: Yes: Rubra Lochia, amount: Moderate Extremities: Yes: Calves non-tender Perineum: Yes: Intact Activity: Other (oob in chair ) - Labs Labs: CBC WBC 8.0 K/mm3 (4.0-10.0) 07/14/18 05:56 RBC 3.42 M/mm3 (3.60-5.2) L 07/14/18 05:56 Hgb 9.0 GM/dL (10.7-15.3) L 07/14/18 05:56 Hct 27.1 % (32.4-45.2) L D 07/14/18 05:56 MCV 79.4 fl (80-96) L 07/14/18 05:56 MCH 26.5 pg (25.7-33.7) 07/14/18 05:56 MCHC 33.3 g/dl (32.0-36.0) 07/14/18 05:56 RDW 13.8 % (11.6-15.6) 07/14/18 05:56 Plt Count 192 K/MM3 (134-434) D 07/14/18 05:56 MPV 8.8 fl (7.5-11.1) 07/14/18 05:56 Absolute Neuts (auto) 6.0 K/mm3 (1.5-8.0) 07/14/18 05:56 Neutrophils % 75.0 % (42.8-82.8) 07/14/18 05:56 Lymphocytes % 15.8 % (8-40) 07/14/18 05:56 Monocytes % 8.6 % (3.8-10.2) 07/14/18 05:56 Eosinophils % 0.4 % (0-4.5) 07/14/18 05:56 Basophils % 0.2 % (0-2.0) 07/14/18 05:56 Nucleated RBC % 0 % (0-0) 07/14/18 05:56 Retic Count 1.83 % (0.5-1.5) H 07/13/18 10:22 Haptoglobin 201 mg/dL (34-200) H 07/13/18 11:32 Other Findings, Remarks: urine output 500 ml + 800 ml lorelei color RS CTA Problem List - Problems (1) 39 weeks gestation of Code(s): Z3A.39 - 39 WEEKS GESTATION OF (2) Previous section Code(s): Z98.891 - HISTORY OF UTERINE SCAR FROM PREVIOUS SURGERY (3) Labor established Code(s): HZL0789 - (4) Morbid obesity with BMI of 40.0-44.9, adult Code(s): E66.01 - MORBID (SEVERE) OBESITY DUE TO EXCESS CALORIES; Z68.41 - BODY MASS INDEX (BMI) 40.0-44.9, ADULT (5) AMA (advanced maternal age) multigravida 35+ Code(s): O09.529 - SUPERVISION OF ELDERLY MULTIGRAVIDA, UNSPECIFIED TRIMESTER (6) Multiparity Code(s): Z64.1 - PROBLEMS RELATED TO MULTIPARITY (7) delivery delivered Code(s): O82 - ENCOUNTER FOR DELIVERY WITHOUT INDICATION (8) Encounter for care after hospital delivery Code(s): Z39.2 - ENCOUNTER FOR ROUTINE FOLLOW-UP (9) Anemia Code(s): D64.9 - ANEMIA, UNSPECIFIED Qualifiers: Anemia type: iron deficiency Iron deficiency anemia type: inadequate dietary iron intake Qualified Code(s): D50.8 - Other iron deficiency anemias Assessment/Plan s/p repeat c/section + BTL stable anemia stable Plan ct po care encourage ambulation , po fluids &deep breathing
[2018-07-14] MEDS: PRENATAL VITAMINS W/ FOLIC ACID TABLET (FP) PO SCH (10:00)
[2018-07-14] MEDS: FERROUS SO4 325 MG TABLET (FP) PO SCH ×2 (10:00→21:22)
[2018-07-14] MEDS: ENOXAPARIN NA (PORCINE) 40 MG/0.4 ML DISP.SYRIN SQ SCH (10:00)
[2018-07-14] MEDS: IBUPROFEN 600 MG TABLET (FP) PO PRN ×2 (11:30→16:28)
[2018-07-14] MEDS: SIMETHICONE 80 MG TAB.CHEW (FP) PO PRN ×2 (11:30→16:27)
[2018-07-14] MEDS: ACETAMINOPHEN 325 MG TABLET (FP) PO PRN ×2 (11:30→16:27)
[2018-07-14] MEDS ORDERED: BISACODYL 10 MG SUPP.RECT RC PRN (17:58)
[2018-07-14] MEDS: SENNOSIDES/DOCUSATE COMBO (SENNA PLUS) TABLET (UD) PO PRN (21:22)
[2018-07-15] MEDS: oxyCODONE HCL 5 MG TABLET PO PRN ×4 (02:27→22:18)
[2018-07-15] MEDS: ACETAMINOPHEN 325 MG TABLET (FP) PO PRN ×2 (02:27→12:09)
--- NOTE | 2018-07-15 06:13 | PN ---
Post Progress Note - Subjective Subjective: No acute events overnight. Pain controlled with meds. +Voiding. Passed small amount of flatus. Ambulating. Type of Delivery: Repeat C/S Vital Signs: Vital Signs Temperature 97.9 F 07/14/18 21:43 Pulse Rate 88 07/14/18 21:43 Respiratory Rate 19 07/14/18 21:43 Blood Pressure 113/56 L 07/14/18 21:43 O2 Sat by Pulse Oximetry (%) 100 07/13/18 21:00 Uterus: Yes: Fundus below umbilicus Incision: Yes: Dressing dry and intact Abdomen/GI: Yes: Abdomen soft Lochia: Yes: Rubra Lochia, amount: Small Extremities: Yes: Calves non-tender Perineum: Yes: Intact Activity: Ambulating - Labs Labs: CBC WBC 8.0 K/mm3 (4.0-10.0) 07/14/18 05:56 RBC 3.42 M/mm3 (3.60-5.2) L 07/14/18 05:56 Hgb 9.0 GM/dL (10.7-15.3) L 07/14/18 05:56 Hct 27.1 % (32.4-45.2) L D 07/14/18 05:56 MCV 79.4 fl (80-96) L 07/14/18 05:56 MCH 26.5 pg (25.7-33.7) 07/14/18 05:56 MCHC 33.3 g/dl (32.0-36.0) 07/14/18 05:56 RDW 13.8 % (11.6-15.6) 07/14/18 05:56 Plt Count 192 K/MM3 (134-434) D 07/14/18 05:56 MPV 8.8 fl (7.5-11.1) 07/14/18 05:56 Absolute Neuts (auto) 6.0 K/mm3 (1.5-8.0) 07/14/18 05:56 Neutrophils % 75.0 % (42.8-82.8) 07/14/18 05:56 Lymphocytes % 15.8 % (8-40) 07/14/18 05:56 Monocytes % 8.6 % (3.8-10.2) 07/14/18 05:56 Eosinophils % 0.4 % (0-4.5) 07/14/18 05:56 Basophils % 0.2 % (0-2.0) 07/14/18 05:56 Nucleated RBC % 0 % (0-0) 07/14/18 05:56 Retic Count 1.83 % (0.5-1.5) H 07/13/18 10:22 Haptoglobin 201 mg/dL (34-200) H 07/13/18 11:32 Problem List - Problems (1) delivery delivered Code(s): O82 - ENCOUNTER FOR DELIVERY WITHOUT INDICATION Assessment/Plan 37yo multip s/p RLTCS, BTL, POD#2 Routine PP care Iron for anemia Encouraged OOB, ambulation D/C to home by POD#4 Ankur Devlin MD
[2018-07-15] MEDS: IBUPROFEN 600 MG TABLET (FP) PO PRN ×4 (07:18→22:18)
[2018-07-15] MEDS: SIMETHICONE 80 MG TAB.CHEW (FP) PO PRN ×4 (07:19→22:19)
[2018-07-15] MEDS: PRENATAL VITAMINS W/ FOLIC ACID TABLET (FP) PO SCH (09:05)
[2018-07-15] MEDS: FERROUS SO4 325 MG TABLET (FP) PO SCH ×2 (09:05→22:18)
[2018-07-15] MEDS: ENOXAPARIN NA (PORCINE) 40 MG/0.4 ML DISP.SYRIN SQ SCH (09:05)
[2018-07-16] MEDS: oxyCODONE HCL 5 MG TABLET PO PRN ×4 (05:59→21:10)
[2018-07-16] MEDS: SIMETHICONE 80 MG TAB.CHEW (FP) PO PRN ×4 (06:00→21:11)
[2018-07-16] MEDS: IBUPROFEN 600 MG TABLET (FP) PO PRN ×3 (06:00→17:27)
[2018-07-16 07:34] LABS: BASO % 0.3 % (0-2.0); EOS % 1.3 % (0-4.5); HEMOGLOBIN 9.2 GM/dL (10.7-15.3); LYMPH % 24.6 % (8-40); MCH 26.6 pg (25.7-33.7); MCHC 33.9 g/dl (32.0-36.0); MEAN CELL VOLUME 78.4 fl (80-96); MEAN PLT VOLUME 8.9 fl (7.5-11.1); MONO % 9.6 % (3.8-10.2); NEUT % 64.2 % (42.8-82.8); PLATELET COUNT 242 K/MM3 (134-434); RBC 3.45 M/mm3 (3.60-5.2); RDW 14.2 % (11.6-15.6); WHITE BLOOD COUNT 7.2 K/mm3 (4.0-10.0)
--- NOTE | 2018-07-16 07:40 | PN ---
Progress Note (short form) - Note Progress Note: pod 3 ,no c/o ,voids ok, passing gas CBC, BMP 07/13/18 10:22 Last Vital Signs Temp Pulse Resp BP Pulse Ox 98.2 F 85 18 118/67 100 07/15/18 22:00 07/15/18 22:00 07/15/18 22:00 07/15/18 22:00 07/13/18 21:00 abdomen soft, no distension, no cva incision dry, clean no calf tenderness plan ambulate, cbc
[2018-07-16] MEDS: FERROUS SO4 325 MG TABLET (FP) PO SCH ×2 (09:08→21:11)
[2018-07-16] MEDS: ENOXAPARIN NA (PORCINE) 40 MG/0.4 ML DISP.SYRIN SQ SCH (09:08)
[2018-07-16] MEDS: PRENATAL VITAMINS W/ FOLIC ACID TABLET (FP) PO SCH (09:08)
[2018-07-16] MEDS: ACETAMINOPHEN 325 MG TABLET (FP) PO PRN (21:11)
[2018-07-16] MEDS: SENNOSIDES/DOCUSATE COMBO (SENNA PLUS) TABLET (UD) PO PRN (21:11)
[2018-07-17] MEDS: oxyCODONE HCL 5 MG TABLET PO PRN ×2 (07:19→14:12)
[2018-07-17] MEDS: IBUPROFEN 600 MG TABLET (FP) PO PRN ×2 (07:21→14:13)
[2018-07-17] MEDS: SIMETHICONE 80 MG TAB.CHEW (FP) PO PRN ×2 (07:22→14:13)
--- NOTE | 2018-07-17 08:24 | DS ---
Physical Examination Vital Signs: Vital Signs Temperature 97.8 F 07/16/18 21:28 Pulse Rate 87 07/16/18 21:28 Respiratory Rate 18 07/16/18 21:28 Blood Pressure 120/69 07/16/18 21:28 O2 Sat by Pulse Oximetry (%) 100 07/13/18 21:00 Constitutional: Yes: Well Nourished, No Distress, Calm Eyes: Yes: WNL, Conjunctiva Clear, EOM Intact HENT: Yes: WNL, Atraumatic, Normocephalic Neck: Yes: WNL, Supple, Trachea Midline Cardiovascular: Yes: WNL, Regular Rate and Rhythm Respiratory: Yes: WNL, Regular, CTA Bilaterally Gastrointestinal: Yes: WNL, Normal Bowel Sounds Musculoskeletal: Yes: WNL Extremities: Yes: WNL Edema: No Integumentary: Yes: WNL Neurological: Yes: WNL, Alert, Oriented ...Motor Strength: WNL Psychiatric: Yes: WNL Labs: CBC, BMP 07/16/18 06:45 07/13/18 10:22 Discharge Summary Current Active Problems 39 weeks gestation of (Acute) AMA (advanced maternal age) multigravida 35+ (Acute) Anemia (Acute) delivery delivered (Acute) Encounter for care after hospital delivery (Acute) Labor established (Acute) Morbid obesity with BMI of 40.0-44.9, adult (Acute) Multiparity (Acute) Previous section (Acute) Procedures: Principal: RLTCS, BTL Hospital Course: Patient presented with uterien contractions, she underwent a RLTCS with BTL She met all and postoperative milestones She was discharged home on POD#4 Condition: Stable - Instructions Diet, Activity, Other Instructions: Post Instructions DIET: Continue good diet high in protein, calcium, and iron rich foods. Drink at least eight (8) glasses of water daily in addition to other fluids. ___ Regular diet MEDICATIONS: Continue vitamins and iron as previously directed. Motrin and Tylenol may be taken for minor discomfort. ACTIVITY: Mild to moderate exercise may be started in two (2) weeks. Take frequent rest periods. Resume normal activity after six (6) week check up. WOUND CARE OF OPERATIVE SITE: Continue use of perineal bottle until vaginal discharge stops. Keep area clean. Shower daily. Keep abdominal wound dry. Report any drainage or redness to physician. Tub baths, tampons and douches are not permitted for [address] Breast feeding & or Bottle feeding BREAST CARE: (For those that are not breast feeding): If engorgement occurs: Wear tight fitting bra. Take Tylenol or Motrin for pain. Apply cold packs (ice in bags to each breast ) FAMILY PLANNING: There are many control alternatives to pursue and they should be discussed at your first office visit. You may resume sexual activity after your six (6) week check up. (Remember, breast feeding is not a contraceptive) NEXT PHYSICIAN APPOINTMENT: Be certain to call for a one (1) week appointment, unless otherwise directed. RTC Thursday for removal of ugo , at [address] [place] [address] Call Clinic or got to Emergency Dept if you have any of the following: Heavy vaginal bleeding Painful urination Leg pain Unusual odor noted to vaginal bleeding High fever Red streaking noted on breast Regular Diet Referrals: Adelina Lakhani MD [Staff Physician] - Disposition: HOME - Home Medications Comprehensive Discharge Medication List: Ambulatory Orders Ferrous Sulfate [Feosol] 325 mg PO DAILY 07/13/18 Pnv No.95/Ferrous Fum/Folic AC [ Vitamin Tablet] 1 each PO DAILY Acetaminophen [Tylenol .Regular Strength -] 500 mg PO Q4H PRN #30 tablet Ferrous Sulfate [Feosol] 325 mg PO BID tab 07/15/18 Ibuprofen [Motrin -] 600 mg PO Q4H PRN #30 tablet 07/15/18 Vitamins (S[facility]) - 1 tab PO DAILY tablet 07/15/18
[2018-07-17 08:57] VITALS: BP 115/71; PULSE 78; TEMP 98.7
[2018-07-17] MEDS: ENOXAPARIN NA (PORCINE) 40 MG/0.4 ML DISP.SYRIN SQ SCH (09:57)
[2018-07-17] MEDS: FERROUS SO4 325 MG TABLET (FP) PO SCH (09:57)
[2018-07-17] MEDS: PRENATAL VITAMINS W/ FOLIC ACID TABLET (FP) PO SCH (09:57)
--- NOTE | 2018-07-22 16:50 | PATH ---
Surgical Pathology Report Patient Name: CRISTO GRADY [facility]. Rec. #: [id number] /Age/Gender: 1980 (Age: 37) / F Account: [id number] Location: [facility] OBS/PASSENGER REPRESENTATIVE Taken: 07/13/2018 Received: 07/14/2018 Reported: 07/22/2018 Physicians: Adelina Lakhani M.D. Specimen(s) Received A: PLACENTA B: RIGHT PORTION FALLOPIAN TUBE C: LEFT PORTION FALLOPIAN TUBE Clinical History , 39 weeks repeat x3 with BTL IAB x8, SPAB x1 History of abnormal Pap Final Diagnosis A. PLACENTA, SECTION: 426 G THIRD TRIMESTER PLACENTA WITH TRIVASCULAR UMBILICAL CORD AND UNREMARKABLE PLACENTAL MEMBRANES. B. FALLOPIAN TUBE, RIGHT, PARTIAL EXCISION: FULL LUMINAL PORTION OF UNREMARKABLE FALLOPIAN TUBE. C. FALLOPIAN TUBE, LEFT, PARTIAL EXCISION: FULL LUMINAL PORTION OF FALLOPIAN TUBE WITH FOCAL DECIDUALIZATION, FOCAL ACUTE INFLAMMATION, AND PARATUBAL CYSTS. Electronically Signed Joann Yanes M.D. Gross Description A. The specimen is received fresh labeled placenta and is a 426 gram, 15.0 x 13.5 x 2.8 cm. placenta with attached membranes and umbilical cord. The attached membranes are carney, translucent with focal opacities and insert marginally. The umbilical cord measures 42 cm. in length and averages 1.0 cm. in diameter. The cord inserts centrally. No true knots or strictures are identified. Cut surface of the umbilical cord reveals 3 vessels. The surface is wilhelm-blue with minimal fibrin deposition and appropriate caliber vessels. The maternal surface is red-brown and intact. Sectioning reveals red-brown, spongy parenchyma. No lesions are identified. Proposal Rep sections are submitted in three cassettes as follows: 1- membrane rolls and umbilical cord; 2-3- full thickness sections of placenta. B. Received in formalin labeled "right portion of fallopian tube," is a 1.9 cm in length portion of fallopian tube. No fimbria are present. The outer surface is carney-li and smooth. Sectioning reveals an unremarkable lumen. Proposal Rep sections are submitted in one cassette. C. Received in formalin labeled "left portion of fallopian tube," is a 2.0 cm in length portion of fallopian tube. No fimbria are present. The outer surface is carney-li and smooth. Sectioning reveals an unremarkable lumen. Proposal Rep sections are submitted in one cassette. 07/21/2018 [facility]07/21/2018
== END 2018-07-17 15:15 | disposition home or self-care (01) | DRG 540 ==
LOC: JPSTI 09:48 → JDEL 09:48 → JLDR 12:45 → J3W 20:30
PROVIDERS: ADMIT Obstetrics & Gynecology; ATTEND Obstetrics & Gynecology
PROC: 10D00Z1 Extraction of Products of Conception, Low, Open Approach (ICD-10-PCS; principal; 2018-07-13)
PROC: 0UL70ZZ Occlusion of Bilateral Fallopian Tubes, Open Approach (ICD-10-PCS; 2018-07-13)
DX: O34.211 Maternal care for low transverse scar from previous cesarean delivery (principal); O99.214 Obesity complicating childbirth; E66.01 Morbid (severe) obesity due to excess calories; O99.02 Anemia complicating childbirth; D64.9 Anemia, unspecified; D50.9 Iron deficiency anemia, unspecified; Z3A.39 39 weeks gestation of pregnancy; Z37.0 Single live birth; Z30.2 Encounter for sterilization
CPT/HCPCS: 36415; 80053; 80307; 81003; 82977; 83010; 84550; 85025; 85044; 85610; 86593; 86850; 86900; 86901; 87086; 88302-TC; 88307-TC; 94010

== ENCOUNTER 2019-02-01 14:31 | Emergency (ER) | payer OTHER ==
--- NOTE | 2019-02-01 14:38 | PDOC ---
Rapid Medical Evaluation Time Seen by Provider: 02/01/19 14:37 Medical Evaluation: Allergies Allergy/AdvReac Type Severity Reaction Status Date / Time No Known Allergies Allergy Verified 07/13/18 11:59 02/01/19 14:37 HPI: B Ear pain x 1 month PE: No gross deficits ORDERS: Nothing Discharge Disposition - Diagnosis Ear pain - Referrals - Patient Instructions - Post Discharge Activity
[2019-02-01 14:40] VITALS: BP 121/69; PULSE 99; TEMP 98.3; BMI 40.8
--- NOTE | 2019-02-01 15:37 | PDOC ---
History of Present Illness - General Chief Complaint: Ear Problem Stated Complaint: LT EAR PAIN Time Seen by Provider: 02/01/19 14:37 History Source: Patient Exam Limitations: No Limitations - History of Present Illness Initial Comments: 02/01/19 15:31 Chief complaint: Ear pain line Patient is a 38-year-old female without significant medical problems other than prior ear infections. Patient admits putting swapnil pins and Q-tips in her ear post because they're itchy. Patient over the last month has had ear pain, noticed drainage from the left ear in the last couple of days. She had used drops on a month ago. No fever GENERAL/CONSTITUTIONAL: No fever, weakness. dizziness HEAD, EYES, EARS, NOSE AND THROAT: No change in vision. No ear pain or discharge. No sore throat. CARDIOVASCULAR: No chest pain RESPIRATORY: No shortness of breath or cough GASTROINTESTINAL: No pain, nausea, vomiting, diarrhea or constipation GENITOURINARY: No dysuria MUSCULOSKELETAL: No neck or back pain SKIN: No rash NEUROLOGIC: No headache, vertigo, loss of consciousness, or loss of sensation. GENERAL: The patient is awake, alert, and fully oriented, in no acute distress. HEAD: Normal with no signs of trauma. EYES: Pupils equal, round and reactive to light, sclera anicteric, conjunctiva clear. ENT: Right ear with mild swelling now, TM normal tear with scabbing, canal almost closed, unable to see TM pharynx: no erythema, no exudate, uvula midline NECK: supple CHEST: clear, nontender, rr BACK: no tenderness or signs of injury EXTREMITIES: Normal range of motion, no edema. NEUROLOGICAL: Normal speech, normal gait. SKIN: Warm, Dry Past History - Past Medical History Allergies/Adverse Reactions: Allergies Allergy/AdvReac Type Severity Reaction Status Date / Time No Known Allergies Allergy Verified 02/01/19 14:40 Home Medications: Ambulatory Orders Ferrous Sulfate [Feosol] 325 mg PO DAILY 07/13/18 Pnv No.95/Ferrous Fum/Folic AC [ Vitamin Tablet] 1 each PO DAILY Acetaminophen [Tylenol .Regular Strength -] 500 mg PO Q4H PRN #30 tablet Ferrous Sulfate [Feosol] 325 mg PO BID tab 07/15/18 Ibuprofen [Motrin -] 600 mg PO Q4H PRN #30 tablet 07/15/18 Vitamins (Sjr) - 1 tab PO DAILY tablet 07/15/18 Clindamycin [Cleocin -] 300 mg PO Q6HPO #28 capsule 02/01/19 Ofloxacin Otic [Floxin Otic -] 10 drop OT DAILY #2 bottle 02/01/19 Asthma: No Cancer: No Cardiac Disorders: No COPD: No Diabetes: No HTN: No Seizures: No Thyroid Disease: No - Reproductive History (#): 7 Para: 3 Cervical CA: No Dysfunctional Uterine Bleeding: No Ectopic : No Endometrial CA: No Polycystic Ovaries: No Therapeutic (s) & number: Yes (2) Tubal Ligation: No Spontaneous : 1 - Suicide/Smoking/Psychosocial Hx Smoking History: Current every day smoker Have you smoked in the past 12 months: No Number of Cigarettes Smoked Daily: 10 If you are a former smoker, when did you quit?: 3 mths ago Information on smoking cessation initiated: No 'Breaking Loose' booklet given: 05/29/16 Hx Alcohol Use: No Drug/Substance Use Hx: No Substance Use Type: None Hx Substance Use Treatment: No *Physical Exam - Vital Signs Last Vital Signs Temp Pulse Resp BP Pulse Ox 98.3 F 99 H 18 121/69 100 02/01/19 14:37 02/01/19 14:37 02/01/19 14:37 02/01/19 14:37 02/01/19 14:37 Medical Decision Making - Medical Decision Making 02/01/19 15:37 Healthy 38-year-old female with ongoing patient with otitis externa due to itchy ears and using swapnil pins to scratch it. Right ear has mild externa, left ear has had drainage, is almost closed, with some swelling, no signs of cellulitis. Patient did state she had a pimple in front of the ear that she popped. Will give clindamycin and ofloxacin Discussed issues, findings, results, applicable medications and treatments and follow-up. All these were understood and all questions were answered *DC/Admit/Observation/Transfer Diagnosis at time of Disposition: Ear pain Qualifiers: Laterality: bilateral Qualified Code(s): H92.03 - Otalgia, bilateral - Discharge Dispostion Disposition: HOME Condition at time of disposition: Stable - Prescriptions Prescriptions: Clindamycin [Cleocin -] 300 mg PO Q6HPO #28 capsule Ofloxacin Otic [Floxin Otic -] 10 drop OT DAILY #2 bottle - Referrals Referrals: Nuno Kendrick MD [Staff Physician] - - Patient Instructions Additional Instructions: Clindamycin, 300 mg every 6 hours for 7 days Use the ofloxacin 10 drops to each ear every day for 7 days Do not put anything in the ears even after they get better Take Tylenol 650 mg every 4 hours or Motrin 600 mg every 6 hours for fever and pain Return to the nearest ER if short of breath, unable to swallow or feeling sicker Followup with your ent in one to 2 days - Post Discharge Activity
== END 2019-02-01 16:21 | disposition home or self-care (01) ==
LOC: JERFT 14:31
DX: H92.03 Otalgia, bilateral (principal)
CPT/HCPCS: 99281-25

== ENCOUNTER 2021-02-18 17:38 | Emergency (ER) | payer OTHER ==
[2021-02-18 18:12] VITALS: BP 128/83; PULSE 85; TEMP 98.3; BMI 40.2
[2021-02-18] MEDS ORDERED: BUPIVACAINE HCL/PF 0.5% (5 MG/ML) 30 ML VIAL IJ ONE (18:22)
[2021-02-18] MEDS ORDERED: BUPIVACAINE HCL/PF 0.5% (5MG/ML) 10 ML VIAL ONE (18:23)
== END 2021-02-18 18:41 | disposition home or self-care (01) ==
LOC: JERFT 17:38
DX: K04.7 Periapical abscess without sinus (principal)
CPT/HCPCS: 99283-25

== ENCOUNTER 2021-05-21 23:10 | Emergency (ER) | payer OTHER ==
[2021-05-21 23:40] VITALS: BMI 39.1
[2021-05-21] MEDS ORDERED: SODIUM CHLORIDE 1,000 ML IV STA (23:43)
[2021-05-21] MEDS ORDERED: ACETAMINOPHEN 1000 MG/100 ML VIAL IVPB ONE (23:43)
[2021-05-21] MEDS ORDERED: ACETAMINOPHEN INJECTION 100 ML IVPB ONE (23:51)
[2021-05-22] MEDS ORDERED: morphine CARPU-JECT 2 MG/1 ML DISP.SYRIN IM ONE (00:07)
[2021-05-22] MEDS ORDERED: morphine SULFATE 4 MG/ML VIAL ONE (00:09)
[2021-05-22 00:57] LABS: BASO % 0.3 % (0-2.0); EOS % 0.2 % (0-4.5); HEMOGLOBIN 12.1 GM/dL (10.7-15.3); LYMPH % 8.3 % (8-40); MCH 25.4 pg (25.7-33.7); MCHC 32.8 g/dl (32.0-36.0); MEAN CELL VOLUME 77.6 fl (80-96); MEAN PLT VOLUME 8.4 fl (7.5-11.1); NEUT % 82.2 % (42.8-82.8); PLATELET COUNT 213 10^3/uL (134-434); RBC 4.77 M/mm3 (3.60-5.2); RDW 15.6 % (11.6-15.6); WHITE BLOOD COUNT 6.6 K/mm3 (4.0-10.0)
[2021-05-22 01:09] LABS: CALCIUM 9.1 mg/dL (8.5-10.1)
[2021-05-22 01:10] LABS: BLOOD UREA NITROGEN 12.6 mg/dL (7-18)
[2021-05-22 01:13] LABS: CREATININE 0.9 mg/dL (0.55-1.3)
[2021-05-22 01:15] LABS: BILIRUBIN,TOTAL 0.4 mg/dL (0.2-1); TOT PROT 7.9 g/dl (6.4-8.2)
[2021-05-22 02:36] LABS: PH,URINE 7.5 (5.0-8.0); URINE APPEARANCE CLEAR; URINE BILIRUBIN NEGATIVE (NEGATIVE); URINE COLOR YELLOW; URINE GLUCOSE (UA) NEGATIVE (NEGATIVE); URINE KETONE NEGATIVE (NEGATIVE); URINE LEUK ESTERASE NEGATIVE (NEGATIVE); URINE NITRITE NEGATIVE (NEGATIVE); URINE PROTEIN NEGATIVE (NEGATIVE)
[2021-05-22] MEDS ORDERED: KETOROLAC TROMETHAMINE 60 MG/2 ML VIAL IM ONE (03:45)
[2021-05-22] MEDS ORDERED: KETOROLAC TROMETHAMINE 30 MG/1 ML VIAL ONE (03:48)
[2021-05-22 09:46] VITALS: BP 135/78; PULSE 90; TEMP 99.2
== END 2021-05-22 10:02 | disposition home or self-care (01) ==
LOC: JER 23:10
PROC: 3E0333Z Introduction of Anti-inflammatory into Peripheral Vein, Percutaneous Approach (ICD-10-PCS; principal; 2021-05-21)
PROC: 3E0233Z Introduction of Anti-inflammatory into Muscle, Percutaneous Approach (ICD-10-PCS; 2021-05-21)
PROC: 3E023NZ Introduction of Analgesics, Hypnotics, Sedatives into Muscle, Percutaneous Approach (ICD-10-PCS; 2021-05-21)
PROC: 3E0337Z Introduction of Electrolytic and Water Balance Substance into Peripheral Vein, Percutaneous Approach (ICD-10-PCS; 2021-05-21)
DX: R05.1 Acute cough (principal); R10.9 Unspecified abdominal pain
CPT/HCPCS: 36415; 71046-TC-FY; 74176-TC; 76830-TC; 80053; 81003; 84703; 85025; 87086; 87491; 87591; 99285-25; C9803; J0131; U0003; U0005

== ENCOUNTER 2021-05-24 17:24 | Emergency (ER) | payer OTHER ==
[2021-05-24 17:42] VITALS: BMI 42.2
[2021-05-24] MEDS ORDERED: SODIUM CHLORIDE 1,000 ML IV STA (19:00)
[2021-05-24] MEDS ORDERED: ONDANSETRON 4 MG/2 ML VIAL IVPUSH ONE (19:00)
[2021-05-24] MEDS ORDERED: ONDANSETRON 4 MG/2 ML VIAL ONE (19:59)
[2021-05-24 20:38] LABS: HCG,QUALITATIVE URINE Negative
[2021-05-24 20:41] LABS: EPI CELLS 18 /uL (0-25.1); HYALINE CASTS 2 /uL (0-3.1); URINE APPEARANCE CLOUDY; URINE BACTERIA >9,000 /uL (0-1359); URINE BILIRUBIN NEGATIVE (NEGATIVE); URINE COLOR YELLOW; URINE GLUCOSE (UA) NEGATIVE (NEGATIVE); URINE KETONE TRACE (NEGATIVE); URINE LEUK ESTERASE TRACE (NEGATIVE); URINE NITRITE POSITIVE (NEGATIVE); URINE PROTEIN 1+ (NEGATIVE); URINE UROBILINOGEN 0.2 mg/dL (0.2-1.0); URINE WBC 48 /uL (0-25.8)
[2021-05-24 20:42] LABS: BASO % 0.4 % (0-2.0); EOS % 0.4 % (0-4.5); HEMATOCRIT 37.9 % (32.4-45.2); HEMOGLOBIN 12.6 GM/dL (10.7-15.3); LYMPH % 24.3 % (8-40); MCH 26.1 pg (25.7-33.7); MCHC 33.3 g/dl (32.0-36.0); MEAN CELL VOLUME 78.3 fl (80-96); MEAN PLT VOLUME 9.5 fl (7.5-11.1); MONO % 9.8 % (3.8-10.2); NEUT % 65.1 % (42.8-82.8); PLATELET COUNT 220 10^3/uL (134-434); RBC 4.84 M/mm3 (3.60-5.2); RDW 15.3 % (11.6-15.6)
[2021-05-24 21:02] LABS: CALCIUM 9.1 mg/dL (8.5-10.1)
[2021-05-24 21:03] LABS: ALBUMIN 3.5 g/dl (3.4-5.0); BLOOD UREA NITROGEN 12.4 mg/dL (7-18)
[2021-05-24 21:11] LABS: BILIRUBIN,TOTAL 0.4 mg/dL (0.2-1); CREATININE 0.8 mg/dL (0.55-1.3); TOT PROT 7.9 g/dl (6.4-8.2); URINE RBC 19.9 /uL (0-23.9)
[2021-05-24] MEDS ORDERED: SULFAMETHOXAZOLE/TRIMETHOPRIM 800MG/160MG D.S. TABLET PO ONE (21:56)
[2021-05-24] MEDS ORDERED: SULFAMETHOXAZOLE/TRIMETHOPRIM 800MG/160MG D.S. TABLET ONE (22:12)
[2021-05-24 22:20] VITALS: BP 122/75; PULSE 72; TEMP 98.6
== END 2021-05-24 22:21 | disposition home or self-care (01) ==
LOC: JER 17:24
PROC: 3E033NZ Introduction of Analgesics, Hypnotics, Sedatives into Peripheral Vein, Percutaneous Approach (ICD-10-PCS; principal; 2021-05-24)
DX: N12 Tubulo-interstitial nephritis, not specified as acute or chronic (principal)
CPT/HCPCS: 36415; 80053; 81003; 84703; 85025; 87045; 87046; 87086; 99284-25; C9803; U0003; U0005

== ENCOUNTER 2021-05-25 15:06 | Emergency (ER) | payer OTHER ==
[2021-05-25] MEDS ORDERED: CASIRIVIMAB/IMDEVIMAB 10 ML in SODIUM CHLORIDE 100 ML IVPB ONE (15:10)
[2021-05-25 15:26] VITALS: BP 115/75; PULSE 99; TEMP 98.6; BMI 42.2
== END 2021-05-25 17:24 | disposition left against medical advice (07) ==
LOC: JER 15:06
DX: U07.1 COVID-19 (principal); A54.9 Gonococcal infection, unspecified
CPT/HCPCS: 96374; 96375; 99284-25

== ENCOUNTER 2021-05-25 20:22 | Emergency (ER) | payer OTHER ==
[2021-05-25] MEDS ORDERED: CASIRIVIMAB/IMDEVIMAB 10 ML in SODIUM CHLORIDE 100 ML IVPB ONE (20:53)
[2021-05-25 21:20] VITALS: TEMP 98.7; BMI 42.2
[2021-05-26 00:03] VITALS: BP 124/74; PULSE 83
== END 2021-05-25 23:30 | disposition home or self-care (01) ==
LOC: JCOVINFU 20:22
DX: U07.1 COVID-19 (principal); A54.9 Gonococcal infection, unspecified
CPT/HCPCS: 99284-25; Q0240

== ENCOUNTER 2021-09-13 04:44 | Day surgery (SDC) | payer OTHER ==
[2021-09-11 16:33] VITALS: BMI 43.9
[2021-09-13] MEDS ORDERED: BUPIVACAINE HCL/PF 0.5% (5MG/ML) 10 ML VIAL ONE (11:13)
[2021-09-13] MEDS ORDERED: LIDOCAINE HCL 1%, 10 MG/ML (20ML VIAL) ONE ×2 (11:13→12:52)
[2021-09-13] MEDS ORDERED: PROPOFOL 20 ML ONE ×3 (12:09→12:56)
[2021-09-13] MEDS ORDERED: MIDAZOLAM HCL 2 MG/2 ML SINGLE DOSE VIAL ONE (12:10)
[2021-09-13] MEDS ORDERED: ceFAZolin SODIUM 1 GM VIAL IVPB ONE (12:27)
[2021-09-13] MEDS ORDERED: ceFAZolin SODIUM 1 GM VIAL ONE (12:30)
[2021-09-13] MEDS ORDERED: BUPIVACAINE HCL/PF 0.5% (5MG/ML) 10 ML VIAL IJ ONE ×2 (12:33)
[2021-09-13] MEDS ORDERED: LIDOCAINE HCL 1%, 10 MG/ML (20ML VIAL) NR ONE ×2 (12:33)
[2021-09-13] MEDS ORDERED: ONDANSETRON 4 MG/2 ML VIAL IVPUSH PRN (12:40)
[2021-09-13] MEDS ORDERED: oxyCODONE HCL 5 MG TABLET PO PRN ×2 (12:40)
[2021-09-13] MEDS ORDERED: KETOROLAC TROMETHAMINE 30 MG/1 ML VIAL ONE (12:42)
[2021-09-13] MEDS ORDERED: LACTATED RINGERS SOLUTION 1,000 ML IV SCH (12:45)
[2021-09-13 15:47] VITALS: BP 104/63; PULSE 83; TEMP 98.2
== END 2021-09-13 15:47 | disposition home or self-care (01) ==
LOC: JASU-SURG 04:44
PROVIDERS: ATTEND Podiatrist Foot & Ankle Surgery
PROC: 0QSN04Z Reposition Right Metatarsal with Internal Fixation Device, Open Approach (ICD-10-PCS; 2021-09-13)
PROC: 0QSN04Z Reposition Right Metatarsal with Internal Fixation Device, Open Approach (ICD-10-PCS; principal; 2021-09-13 11:30)
DX: M77.41 Metatarsalgia, right foot (principal); L97.519 Non-pressure chronic ulcer of other part of right foot with unspecified severity
CPT/HCPCS: 73630-TC-RT-FY; 76000-TC-FY; 81025; 88304-TC; 88311-TC; 97116-GP

== ENCOUNTER 2022-06-01 16:00 | Emergency (ER) | payer OTHER ==
[2022-06-01 16:14] VITALS: BP 142/84; PULSE 98; RESP 18; BMI 43.0
[2022-06-01] MEDS ORDERED: KETOROLAC TROMETHAMINE 30 MG/1 ML VIAL IM ONE (17:06)
[2022-06-01] MEDS ORDERED: KETOROLAC TROMETHAMINE 30 MG/1 ML VIAL ONE (17:36)
== END 2022-06-01 18:49 | disposition home or self-care (01) ==
LOC: JERFT 16:00 → JER 16:00 → JERFT 18:49
PROC: 3E0233Z Introduction of Anti-inflammatory into Muscle, Percutaneous Approach (ICD-10-PCS; principal; 2022-06-01)
DX: M54.2 Cervicalgia (principal); R05.1 Acute cough; Y04.0XXA Assault by unarmed brawl or fight, initial encounter
CPT/HCPCS: 70450-TC; 72125-TC; 73130-TC-RT-FY; 99285-25

== ENCOUNTER 2022-10-28 10:06 | Emergency (ER) | payer OTHER ==
[2022-10-28 10:22] VITALS: BP 125/66; PULSE 85; RESP 18; TEMP 98.2; BMI 39.6
[2022-10-28] MEDS ORDERED: ACETAMINOPHEN 500 MG TABLET (FP) PO ONE (11:30)
[2022-10-28] MEDS ORDERED: guaiFENesin 200 MG/10 ML 10 ML UNIT-DOSE CUPS PO ONE (11:30)
[2022-10-28] MEDS ORDERED: IBUPROFEN 600 MG TABLET (FP) PO ONE ×2 (11:30→11:38)
[2022-10-28] MEDS ORDERED: guaiFENesin/D-METHORPHAN HB 10 ML UNIT-DOSE CUPS ONE (11:38)
[2022-10-28] MEDS ORDERED: ACETAMINOPHEN 500 MG TABLET (FP) ONE (11:39)
== END 2022-10-28 12:30 | disposition home or self-care (01) ==
LOC: JERFT 10:06
DX: R05.1 Acute cough (principal); M79.10 Myalgia, unspecified site; R09.81 Nasal congestion; B34.9 Viral infection, unspecified; Z20.822 Contact with and (suspected) exposure to COVID-19
CPT/HCPCS: 0241U-QW; 71046-TC-FY; 99284-25